=== PATIENT | male | born 1990 | race Caucasian/White ===

== ENCOUNTER 2018-05-27 05:51 | Observation (INO) | payer OTHER ==
[2018-05-27 06:44] LABS: Absolute Lymphocytes (CBC) 2.2 K/uL (0.7-4.9); Absolute Monocytes 0.7 K/uL (0.1-1.3); Absolute Neutrophil 4.6 K/uL (1.8-8.0); Basophils % 0.7 % (0-1.3); Eosinophils % 1.2 % (0-4.4); Hematocrit 42.2 % (39.6-49.0); Lymphocytes % 28.7 % (15.3-44.8); MCH 29.4 pg (27.0-35.0); MCV 83.3 fL (80-100); MPV 7.8 fL (7.6-11.3); Monocytes % 9.1 % (3.3-12.3); RBC Red Blood Cell Count 5.07 M/uL (4.33-5.43)
[2018-05-27 06:50] LABS: Protime INR 1.03
[2018-05-27 07:15] LABS: ALT/SGPT 80 U/L (12-78); AST/SGOT 66 U/L (15-37); Albumin 3.1 g/dL (3.4-5.0); Alkaline Phosphatase 78 U/L (45-117); BUN Blood Urea Nitrogen 12 mg/dL (7-18); Bicarbonate 24 mmol/L (21-32); Bilirubin Direct < 0.1 mg/dL (0-0.2); Bilirubin Total 0.2 mg/dL (0.2-1.0); Glucose Level 111 mg/dL (74-106); Magnesium 1.8 mg/dL (1.8-2.4); NT PRO-BNP 104 pg/mL (<125); Protein, Total 7.3 g/dL (6.4-8.2); Sodium Level 139 mmol/L (136-145); Troponin (Emerg Dept Use Only) < 0.02 ng/mL (0.0-0.045)
--- NOTE | 2018-05-27 07:54 | RAD REPORT ---
EXAM DESCRIPTION: CT - Chest For Pe Angio - 05/27/2018 7:37 am CLINICAL HISTORY: Chest pain, shortness of breath COMPARISON: Chest film May 27 TECHNIQUE: Dynamically enhanced 3 mm thick images of the chest were obtained during administration o f approximately 150mL Isovue 370 IV contrast. Coronal and oblique MIP reconstruction images were gene rated and reviewed. Exam utilizes a protocol to evaluate the pulmonary arterial tree. All CT scans are performed using dose optimization technique as appropriate and may include automated exposure control or mA/KV adjustment according to patient size. FINDINGS: No pulmonary emboli are identified. The aorta as imaged shows no acute or suspicious finding. No pericardial thickening or effusion. No focal mass or consolidation. Motion degradation could potentially mask minimal interstitial edema or infiltrate. No pleural effusion or pleural thickening. No mediastinal or hilar suspicious masses. No chest wall masses or abnormal axillary lymphadenopathy. IMPRESSION: No pulmonary emboli identified. No other significant or suspicious findings.
[2018-05-27 08:25] LABS: Barbiturates NEGATIVE (NEGATIVE); Benzodiazepines NEGATIVE (NEGATIVE); Cocaine NEGATIVE (NEGATIVE); METHAMPHETAM NEGATIVE (NEGATIVE); Methadone NEGATIVE (NEGATIVE); Opiates NEGATIVE (NEGATIVE); Phencyclidine NEGATIVE (NEGATIVE); THC Cannibis NEGATIVE (NEGATIVE)
[2018-05-27] MEDS ORDERED: LABETALOL HCL 100 MG/20 ML ONE (08:28)
[2018-05-27] MEDS ORDERED: LABETALOL 20 MG/4ML SYRINGE IV ONE ×3 (08:29→10:56)
[2018-05-27] MEDS ORDERED: LABETALOL HCL 100 MG TAB ONE (08:49)
--- NOTE | 2018-05-27 08:54 | ER ---
Nurse's Notes [facility] Name: Brady Mejia Age: 28 yrs Sex: Male : 1990 Arrival Date: 05/27/2018 Time: 05:56 Bed 14 Private MD: Diagnosis: Chest pain, unspecified;Hypertension Presentation: 05/27 06:12 Presenting complaint: Patient states: he started have chest pain at approx 0100 last bb night pain is now intermittent and now 2/10. Transition of care: patient was not received from another setting of care. Onset of symptoms was May 27, 2018. Risk Assessment: Do you want to hurt yourself or someone else? Patient reports no desire to harm self or others. Initial Sepsis Screen: Does the patient meet any 2 criteria? No. Patient's initial sepsis screen is negative. Does the patient have a suspected source of infection? No. Patient's initial sepsis screen is negative. Care prior to arrival: None. 06:12 Method Of Arrival: Ambulatory bb 06:12 Acuity: NARA 2 bb Triage Assessment: 06:20 General: Appears in no apparent distress. comfortable, Behavior is calm, cooperative, cc3 appropriate for age. Pain: Complains of pain in chest Pain currently is 2 out of 10 on a pain scale. Quality of pain is described as aching. EENT: No signs and/or symptoms were reported regarding the EENT system. Neuro: Level of Consciousness is awake, alert, obeys commands, Oriented to person, place, time, situation, Appropriate for age. Cardiovascular: Reports chest pain, since 0100H this morning Patient's skin is warm and dry. Respiratory: Airway is patent Respiratory effort is even, unlabored, Respiratory pattern is regular, symmetrical. GI: Abdomen is round non-distended. : No signs and/or symptoms were reported regarding the genitourinary system. Derm: No signs and/or symptoms reported regarding the dermatologic system. Musculoskeletal: Circulation, motion, and sensation intact. Range of motion: intact in all extremities. 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 - Social history:: Smoking status: Patient/guardian denies using tobacco, Patient/guardian denies using alcohol, street drugs. - Ebola Screening: : No symptoms or risks identified at this time. Screenin:20 Abuse screen: Denies threats or abuse. Denies injuries from another. Nutritional cc3 screening: No deficits noted. Tuberculosis screening: No symptoms or risk factors identified. Fall Risk Ambulatory Aid- None/Bed Rest/Nurse Assist (0 pts). Gait- Normal/Bed Rest/Wheelchair (0 pts) Mental Status- Oriented to own ability (0 pts). Assessment: 06:20 General: see triage assessment. cc3 06:45 Reassessment: Patient appears in no apparent distress at this time. Patient and/or cc3 family updated on plan of care and expected duration. Pain level reassessed. Patient is alert, oriented x 3, equal unlabored respirations, skin warm/dry/pink. 07:27 General: Appears in no apparent distress. Behavior is calm, cooperative. Pain: la1 Complains of pain in anterior aspect of right upper chest and right breast Pain does not radiate. Pain currently is 2 out of 10 on a pain scale. Pain began 4 hours ago. Neuro: Level of Consciousness is awake, alert, obeys commands, Oriented to person, place, time, situation. Cardiovascular: Capillary refill < 3 seconds Patient's skin is warm and dry. Respiratory: Airway is patent Respiratory effort is even, unlabored, Respiratory pattern is regular, symmetrical, Breath sounds are clear bilaterally. 10:10 Reassessment: Patient appears in no apparent distress at this time. Patient and/or aj family updated on plan of care and expected duration. Pain level reassessed. Patient is alert, oriented x 3, equal unlabored respirations, skin warm/dry/pink. General: Appears in no apparent distress. comfortable, Behavior is calm, cooperative, appropriate for age. Neuro: Level of Consciousness is awake, alert, obeys commands, Oriented to person, place, time, situation, Appropriate for age. Cardiovascular: Capillary refill < 3 seconds Patient's skin is warm and dry. Respiratory: Airway is patent Respiratory effort is even, unlabored, Respiratory pattern is regular, symmetrical. GI: Abdomen is flat. Derm: Skin is intact, is healthy with good turgor, Skin is pink, warm \T\ dry. normal. 11:40 Reassessment: Patient appears in no apparent distress at this time. No changes from aj previously documented assessment. Patient and/or family updated on plan of care and expected duration. Pain level reassessed. Patient is alert, oriented x 3, equal unlabored respirations, skin warm/dry/pink. Patient reported nausea, provider notified Patient states feeling better. Patient states symptoms have improved. 12:31 Reassessment: Patient appears in no apparent distress at this time. No changes from aj previously documented assessment. Patient and/or family updated on plan of care and expected duration. Pain level reassessed. Patient is alert, oriented x 3, equal unlabored respirations, skin warm/dry/pink. Reports headache. 13:26 Reassessment: Patient appears in no apparent distress at this time. No changes from aj previously documented assessment. Patient and/or family updated on plan of care and expected duration. Pain level reassessed. Patient is alert, oriented x 3, equal unlabored respirations, skin warm/dry/pink. PAtient reports headache, awaiting return phone call from Dr Galaviz. Vital Signs: 06:17 BP 177 / 124; Pulse 79; Resp 14 S; Temp 97.9(O); Pulse Ox 97% on R/A; Weight 98.43 kg bb (M); Height 5 ft. 11 in. (180.34 cm) (R); Pain 2/10; 06:30 BP 181 / 131; Pulse 80; Resp 16 S; Pulse Ox 96% on R/A; cc3 07:08 BP 180 / 130 RA; Pulse 71; Resp 16; Pulse Ox 97% on R/A; la1 08:02 BP 206 / 142; Pulse 75; Resp 16; Pulse Ox 98% on R/A; la1 08:29 BP 191 / 130; Pulse 76; Resp 16; Pulse Ox 97% on R/A; la1 08:49 BP 209 / 131; la1 09:06 BP 199 / 133; Pulse 72; Resp 16; Pulse Ox 98% on R/A; la1 09:19 BP 180 / 130; Pulse 75; Resp 16; Pulse Ox 98% on R/A; la1 09:48 BP 163 / 126; Pulse 72; Resp 16; Pulse Ox 97% on R/A; la1 10:10 BP 170 / 124; Pulse 73; Resp 18; Pulse Ox 97% on R/A; aj 10:23 BP 163 / 124; Pulse 73; aj 11:17 BP 145 / 113; Pulse 80; Resp 17; Pulse Ox 99% on R/A; aj 11:41 BP 132 / 93; Pulse 71; Resp 16; Pulse Ox 98% on R/A; aj 12:30 BP 142 / 105; Pulse 73; Resp 20; Pulse Ox 97% on R/A; aj 06:17 Body Mass Index 30.27 (98.43 kg, 180.34 cm) bb ED Course: 05:56 Patient arrived in ED. ag3 06:00 [facility] kb 06:00 Constantino Scruggs MD is Attending Physician. kb 06:14 Triage completed. bb 06:17 Arm band placed on Patient placed in an exam room, on a stretcher, on cardiac tech, bb on pulse oximetry. EKG completed in triage. Results shown to MD. 06:20 Patient has correct armband on for positive identification. Placed in gown. Bed in low cc3 position. Call light in reach. Side rails up X2. cardiac monitor technician on. Pulse ox on. NIBP on. 06:30 Inserted saline lock: 20 gauge in right antecubital area, using aseptic technique. cc3 Blood collected. 06:35 X-ray completed. Portable x-ray completed in exam room. Patient tolerated procedure jb2 well. 06:38 XRAY Chest (1 view) In Process Unspecified. EDMS 07:00 Report given to SANCHO Jason. cc3 07:03 Eren Roque RN is Primary Nurse. la1 07:[address] via wheelchair. cw1 07:28 No provider procedures requiring assistance completed. Patient maintains SpO2 la1 saturation greater than 95% on room air. 07:37 CT Chest For PE Angio In Process Unspecified. EDMS 08:03 Notified ED physician of Notified Nurse Practitioner and/or Physician Cyber Forensics Analyst of la1 vital signs. 08:53 Sylvie Galaviz MD is Hospitalizing Provider. kb 09:15 Troponin (emerg Dept Use Only) Sent. mh5 09:16 Repeat lab(s) drawn. by me, sent to lab. EKG done, by ED staff, reviewed by Nydia CHUN. 12:30 Notified the admitting physician of CT and Ultrasound were back and negative and asked aj to please return phone call to me in ER. 13:15 Chief Of Service notified Unable to contact Dr Galaviz and updated on patient's status aj and length of stay in ER. 13:25 Mendy Ramírez called me in ER and reported that Dr Galaviz had been waiting for CT and aj Ultrasound results. Chief Of Service notified that message was left on Dr Galaviz's voice mail about CT and Ultrasound results being negative at 1230. Stated that she would speak with Dr Galaviz. 13:27 Awaiting: Hospitalist to make decision about admission vs discharge. aj 14:01 Report given to Jenn KINGSLEY. wilma 14:23 Patient admitted, IV remains in place. intact. aj Administered Medications: 08:29 Drug: Trandate 10 mg Route: IVP; Site: left antecubital; la1 09:15 Follow up: Response: No adverse reaction; Blood pressure is lowered la1 08:49 Drug: Trandate 100 mg Route: PO; la1 09:15 Follow up: Response: No adverse reaction la1 09:04 Drug: Trandate 20 mg Route: IVP; Site: left antecubital; la1 09:15 Follow up: Response: No adverse reaction la1 10:58 Drug: Trandate 20 mg Route: IVP; Site: left antecubital; aj 11:24 Follow up: Response: Blood pressure is lowered aj 10:58 Drug: Norvasc 5 mg Route: PO; aj 11:25 Follow up: Response: Blood pressure is lowered aj 11:38 Drug: Zofran 4 mg Route: IVP; Site: left antecubital; aj 14:23 Follow up: Response: No adverse reaction; Nausea is decreased aj Outcome: 08:54 Decision to Hospitalize by Provider. kb 14:23 Admitted to Med/surg accompanied by tech, via wheelchair, with chart, Report called to wilma Barajas 14:23 Condition: good 14:23 Instructed on the need for admit. 14:24 Patient left the ED. aj Signatures: Dispatcher [employer] EDNydia Link, BIOMETRICS CONSULTANT-C BIOMETRICS CONSULTANT-Ckb Anna Flores, RN RN J Carlos Pereyra2 Mira Haddad RN RN Kelly Ferro 1 Eren Roque RN RN Leni Barrera [facility] Patsy Lora 3 Emeli Martinez 3
--- NOTE | 2018-05-27 08:55 | EDPHYS ---
Physician Documentation [facility] Name: Brady Mejia Age: 28 yrs Sex: Male : 1990 Arrival Date: 05/27/2018 Time: 05:56 Bed 14 Private MD: ED Physician Constantino Scruggs HPI: 05/27 07:12 This 28 yrs old Male presents to ER via Ambulatory with complaints of Chest kb Pain. 07:12 The patient or guardian reports chest pain that is located primarily in the chest kb diffusely. The pain radiates to abdomen. Associated signs and symptoms: The patient has no apparent associated signs or symptoms. The chest pain is described as intermittent. Duration: The patient or guardian reports multiple episodes, that are intermittent, with no pattern. Modifying factors: The symptoms are alleviated by nothing. the symptoms are aggravated by nothing. Severity of pain: At its worst the pain was moderate in the emergency department the pain has improved markedly. The patient has not experienced similar symptoms in the past. The patient has not recently seen a physician. 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 - Social history:: Smoking status: Patient/guardian denies using tobacco, Patient/guardian denies using alcohol, street drugs. - Ebola Screening: : No symptoms or risks identified at this time. ROS: 07:12 Constitutional: Negative for fever, chills, and weight loss, ENT: Negative for injury, kb pain, and discharge, Neck: Negative for injury, pain, and swelling, Respiratory: Negative for shortness of breath, cough, wheezing, and pleuritic chest pain, Abdomen/GI: Negative for abdominal pain, nausea, vomiting, diarrhea, and constipation, Back: Negative for injury and pain, : Negative for injury, bleeding, discharge, and swelling, MS/Extremity: Negative for injury and deformity, Skin: Negative for injury, rash, and discoloration, Neuro: Negative for headache, weakness, numbness, tingling, and seizure. 07:12 Cardiovascular: Positive for chest pain, Negative for edema, orthopnea, palpitations, paroxysmal nocturnal dyspnea. Exam: 07:12 Constitutional: This is a well developed, well nourished patient who is awake, alert, kb and in no acute distress. Head/Face: Normocephalic, atraumatic. Eyes: Pupils equal round and reactive to light, extra-ocular motions intact. Lids and lashes normal. Conjunctiva and sclera are non-icteric and not injected. Cornea within normal limits. Periorbital areas with no swelling, redness, or edema. ENT: Nares patent. No nasal discharge, no septal abnormalities noted. Tympanic membranes are normal and external auditory canals are clear. Oropharynx with no redness, swelling, or masses, exudates, or evidence of obstruction, uvula midline. Mucous membranes moist. Neck: Trachea midline, no thyromegaly or masses palpated, and no cervical lymphadenopathy. Supple, full range of motion without nuchal rigidity, or vertebral point tenderness. No Meningismus. Chest/axilla: Normal chest wall appearance and motion. Nontender with no deformity. No lesions are appreciated. Cardiovascular: Regular rate and rhythm with a normal S1 and S2. No gallops, murmurs, or rubs. Normal PMI, no JVD. No pulse deficits. Respiratory: Lungs have equal breath sounds bilaterally, clear to auscultation and percussion. No rales, rhonchi or wheezes noted. No increased work of breathing, no retractions or nasal flaring. Abdomen/GI: Soft, non-tender, with normal bowel sounds. No distension or tympany. No guarding or rebound. No evidence of tenderness throughout. Back: No spinal tenderness. No costovertebral tenderness. Full range of motion. Skin: Warm, dry with normal turgor. Normal color with no rashes, no lesions, and no evidence of cellulitis. MS/ Extremity: Pulses equal, no cyanosis. Neurovascular intact. Full, normal range of motion. Neuro: Awake and alert, GCS 15, oriented to person, place, time, and situation. Cranial nerves II-XII grossly intact. Motor strength 5/5 in all extremities. Sensory grossly intact. Cerebellar exam normal. Normal gait. Vital Signs: 06:17 BP 177 / 124; Pulse 79; Resp 14 S; Temp 97.9(O); Pulse Ox 97% on R/A; Weight 98.43 kg bb (M); Height 5 ft. 11 in. (180.34 cm) (R); Pain 2/10; 06:30 BP 181 / 131; Pulse 80; Resp 16 S; Pulse Ox 96% on R/A; cc3 07:08 BP 180 / 130 RA; Pulse 71; Resp 16; Pulse Ox 97% on R/A; la1 08:02 BP 206 / 142; Pulse 75; Resp 16; Pulse Ox 98% on R/A; la1 08:29 BP 191 / 130; Pulse 76; Resp 16; Pulse Ox 97% on R/A; la1 08:49 BP 209 / 131; la1 09:06 BP 199 / 133; Pulse 72; Resp 16; Pulse Ox 98% on R/A; la1 09:19 BP 180 / 130; Pulse 75; Resp 16; Pulse Ox 98% on R/A; la1 09:48 BP 163 / 126; Pulse 72; Resp 16; Pulse Ox 97% on R/A; la1 10:10 BP 170 / 124; Pulse 73; Resp 18; Pulse Ox 97% on R/A; aj 10:23 BP 163 / 124; Pulse 73; aj 11:17 BP 145 / 113; Pulse 80; Resp 17; Pulse Ox 99% on R/A; aj 11:41 BP 132 / 93; Pulse 71; Resp 16; Pulse Ox 98% on R/A; aj 12:30 BP 142 / 105; Pulse 73; Resp 20; Pulse Ox 97% on R/A; aj 06:17 Body Mass Index 30.27 (98.43 kg, 180.34 cm) bb MDM: 06:00 Patient medically screened. kb 07:12 Data reviewed: vital signs, nurses notes. Data interpreted: Pulse oximetry: on room air kb is 97 %. Interpretation: normal. 08:17 Counseling: I had a detailed discussion with the patient and/or guardian regarding: the kb historical points, exam findings, and any diagnostic results supporting the discharge/admit diagnosis, lab results, radiology results, the need for further work-up and treatment in the hospital. 08:40 Physician consultation: Sylvie Galaviz MD was contacted at 08:40, regarding admission, ryan to the telemetry unit. patient's condition, and will see patient in ED, shortly. 10:42 ED course: Dr Glaaviz came to see the patient, states "He can go home. I spoke to Dr ryan Middleton about him and he can follow up in his office.". 05/27 06:18 Order name: LFT's; Complete Time: 07:17 kb 05/27 06:18 Order name: Basic Metabolic Panel; Complete Time: 07:17 kb 05/27 06:18 Order name: CBC with Diff; Complete Time: 06:49 kb 05/27 06:18 Order name: Magnesium; Complete Time: 07:17 kb 05/27 06:18 Order name: NT PRO-BNP; Complete Time: 07:17 kb 05/27 06:18 Order name: PT-INR; Complete Time: 06:59 kb 05/27 06:18 Order name: Troponin (emerg Dept Use Only); Complete Time: 07:17 kb 05/27 06:18 Order name: XRAY Chest (1 view); Complete Time: 09:43 kb 05/27 06:18 Order name: D-Dimer; Complete Time: 06:59 kb 05/27 06:40 Order name: UDS; Complete Time: 08:31 kb 05/27 08:17 Order name: Urine Dipstick--Ancillary (enter results); Complete Time: 09:09 iw 05/27 08:39 Order name: Troponin (emerg Dept Use Only); Complete Time: 09:35 kb 05/27 11:42 Order name: Troponin (emerg Dept Use Only) aj 05/27 12:35 Order name: Troponin (Emerg Dept Use Only); Complete Time: 12:35 EDMS 05/27 06:18 Order name: EKG; Complete Time: 06:19 kb 05/27 06:18 Order name: Cardiac monitoring; Complete Time: 06:25 kb 05/27 06:18 Order name: EKG - Nurse/Tech; Complete Time: 06:25 kb 05/27 06:18 Order name: IV Saline Lock; Complete Time: 06:33 kb 05/27 06:18 Order name: Labs collected and sent; Complete Time: 06:33 kb 05/27 06:18 Order name: O2 Per Protocol; Complete Time: 06:26 kb 05/27 06:54 Order name: CT Chest For PE Angio; Complete Time: 07:55 kb 05/27 08:39 Order name: EKG; Complete Time: 08:39 kb 05/27 12:13 Order name: CT; Complete Time: 12:13 EDMS 05/27 13:42 Order name: US; Complete Time: 13:55 EDMS 05/27 06:18 Order name: O2 Sat Monitoring; Complete Time: 06:26 kb 05/27 06:27 Order name: Recheck Vital Signs; Complete Time: 06:36 kb 05/27 06:40 Order name: Bilateral blood pressure; Complete Time: 07:13 kb 05/27 08:39 Order name: EKG - Nurse/Tech; Complete Time: 08:49 kb Administered Medications: 08:29 Drug: Trandate 10 mg Route: IVP; Site: left antecubital; la1 09:15 Follow up: Response: No adverse reaction; Blood pressure is lowered la1 08:49 Drug: Trandate 100 mg Route: PO; la1 09:15 Follow up: Response: No adverse reaction la1 09:04 Drug: Trandate 20 mg Route: IVP; Site: left antecubital; la1 09:15 Follow up: Response: No adverse reaction la1 10:58 Drug: Trandate 20 mg Route: IVP; Site: left antecubital; aj 11:24 Follow up: Response: Blood pressure is lowered aj 10:58 Drug: Norvasc 5 mg Route: PO; aj 11:25 Follow up: Response: Blood pressure is lowered aj 11:38 Drug: Zofran 4 mg Route: IVP; Site: left antecubital; aj 14:23 Follow up: Response: No adverse reaction; Nausea is decreased aj Disposition: 14:47 Co-signature as Attending Physician, Constantino Scruggs MD I agree with the assessment and wa plan of care. Disposition: 05/27/18 08:54 Hospitalization ordered by Sylvie Galaviz for Observation. Preliminary diagnosis are Chest pain, unspecified, Hypertension. - Bed requested for Telemetry/MedSurg (observation). - Status is Observation. aj - Condition is Stable. - Problem is new. - Symptoms are unchanged. UTI on Admission? No Signatures: Dispatcher [employer] EDNydia Link FNP-C FNP-Ckb Mendy Ramírez RN RN dw Myers, Amanda, RN RN aj Anderson, Corey, MD MD cha Ballard, Brenda, RN RN bb Attema, Lee, RN RN laConstantino Bridges MD MD wa Corrections: (The following items were deleted from the chart) 11:37 07:12 Constitutional: This is a well developed, well nourished patient who is awake, kb alert, and in no acute distress. Head/Face: Normocephalic, atraumatic. Eyes: Pupils equal round and reactive to light, extra-ocular motions intact. Lids and lashes normal. Conjunctiva and sclera are non-icteric and not injected. Cornea within normal limits. Periorbital areas with no swelling, redness, or edema. ENT: Nares patent. No nasal discharge, no septal abnormalities noted. Tympanic membranes are normal and external auditory canals are clear. Oropharynx with no redness, swelling, or masses, exudates, or evidence of obstruction, uvula midline. Mucous membranes moist. Neck: Trachea midline, no thyromegaly or masses palpated, and no cervical lymphadenopathy. Supple, full range of motion without nuchal rigidity, or vertebral point tenderness. No Meningismus. Chest/axilla: Normal chest wall appearance and motion. Nontender with no deformity. No lesions are appreciated. Cardiovascular: Regular rate and rhythm with a normal S1 and S2. No gallops, murmurs, or rubs. Normal PMI, no JVD. No pulse deficits. Respiratory: Lungs have equal breath sounds bilaterally, clear to auscultation and percussion. No rales, rhonchi or wheezes noted. No increased work of breathing, no retractions or nasal flaring. Abdomen/GI: Soft, non-tender, with normal bowel sounds. No distension or tympany. No guarding or rebound. No evidence of tenderness throughout. Back: No spinal tenderness. No costovertebral tenderness. Full range of motion. Skin: Warm, dry with normal turgor. Normal color with no rashes, no lesions, and no evidence of cellulitis. MS/ Extremity: Pulses equal, no cyanosis. Neurovascular intact. Full, normal range of motion. Neuro: Awake and alert, GCS 15, oriented to person, place, time, and situation. Cranial nerves II-XII grossly intact. Motor strength 5/5 in all extremities. Sensory grossly intact. Cerebellar exam normal. Normal gait. kb 13:47 08:54 Hospitalization Ordered by Sylvie Galaviz MD for Observation. Preliminary dw diagnosis is Chest pain, unspecified; Hypertension. Bed requested for Telemetry/MedSurg (observation). Status is Observation. Condition is Stable. Problem is new. Symptoms are unchanged. UTI on Admission? No. kb 14:24 13:47 05/27/2018 08:54 Hospitalization Ordered by Sylvie Galaviz MD for Observation. aj Preliminary diagnosis is Chest pain, unspecified; Hypertension. Bed requested for Telemetry/MedSurg (observation). Status is Observation. Condition is Stable. Problem is new. Symptoms are unchanged. UTI on Admission? No. dw
[2018-05-27 09:07] LABS: Urine Blood NEGATIVE (NEG); Urine Glucose NEGATIVE (NEG); Urine Protein 2+ (NEG); Urine Specific Gravity 1.015 (1.005-1.030)
--- NOTE | 2018-05-27 09:36 | RAD REPORT ---
EXAM DESCRIPTION: RAD - Chest Single View - 05/27/2018 6:38 am CLINICAL HISTORY: CHEST PAIN COMPARISON: None. TECHNIQUE: AP portable chest image was obtained 0630 hours . FINDINGS: Lungs are clear. Heart and vasculature are normal. No measurable pleural effusion and no p neumothorax. No acute bony abnormality seen. No acute aortic findings suspected. IMPRESSION: No acute cardiopulmonary process.
[2018-05-27] MEDS ORDERED: AMLODIPINE 5 MG TAB ONE (10:56)
--- NOTE | 2018-05-27 12:12 | RAD REPORT ---
EXAM DESCRIPTION: CT - Abdomen Pelvis Wo Contrast - 05/27/2018 11:57 am CLINICAL HISTORY: Abdominal pain COMPARISON: CT imaging August 2016 TECHNIQUE: Axial [address] imaging of the abdomen and pelvis was performed without IV contrast. No IV contrast was given because of allergy, abnormal renal function, patient refusal or physician re quest. No oral contrast administered. All CT scans are performed using dose optimization technique as appropriate and may include automated exposure control or mA/KV adjustment according to patient size. FINDINGS: No suspicious findings in the lung bases. The liver, spleen and pancreas show no suspicious findings on non-contrast imaging. Gallbladder is ti ghtly contracted precluding assessment. No biliary tree dilatation. No hydronephrosis is present. Contrast is present in the collecting system from earlier CT chest stud y. There is contrast in a contracted urinary bladder as well. No prostate or seminal vesicle abnormal ity seen. No significant adrenal finding. Patient has multiple bilateral angiomyolipomas with no pierce dence for active or acute hemorrhage. Soft tissue component on the largest left lesion has diminished . Maximum diameter is 5 cm currently compared to 6.5 cm previously. The largest lesion on the right h as also decreased in size approximately 6 cm currently compared to the or 9 cm August 2016. No dilated bowel loops or bowel wall thickening. No free air, free fluid or inflammatory stranding. N o hernia, mass or bulky lymphadenopathy. No appendicitis findings. No abnormal mesenteric adenopathy. No suspicious bony findings. IMPRESSION: Non-contrast enhanced CT abdomen and pelvis imaging shows no acute finding. Patient has known bilateral angiomyolipomas with no evidence for acute hemorrhage. The 2 largest lesi ons have shown a decrease in size. Smaller lesions also appear to have decreased in size since 2016. Gallbladder is tightly contracted precluding assessment. Acute process is doubtful. Full assessment is limited is the absence of IV contrast.
--- NOTE | 2018-05-27 13:42 | RAD REPORT ---
EXAM DESCRIPTION: US - Renal Ultrasound-Complete - 05/27/2018 12:40 pm CLINICAL HISTORY: Abnormal renal function, history of renal artery embolization COMPARISON: CT imaging May 27 FINDINGS: The right kidney measures 13.8 x 7.2 x 5.7 cm. The left kidney measures 12.1 x 6.6 x 5.8 cm. Renal cortical thickness is normal. Echogenicity is increased indicating a component of medical r enal disease. No hydronephrosis. Patient has multiple variably sized predominantly hyperechoic masses . This matches the angiomyolipoma findings on prior CT studies. Urinary bladder is contracted. No gross abnormality. Renal vascular assessment is very limited. No renal artery stenosis can't be assessed on this study. IMPRESSION: Multiple angiomyolipomas matching the CT finding. No sonographic evidence of acute hemor rhage. Patient has underlying medical renal disease is evident. No hydronephrosis. Limited vascular assessment. Renal artery stenosis cannot be assessed.
[2018-05-27] MEDS ORDERED: ONDANSETRON 4 MG/2 ML VIAL IV PRN (14:32)
[2018-05-27] MEDS ORDERED: NA CHLORIDE 0.9% 1,000 ML IV SCH (14:32)
[2018-05-27] MEDS ORDERED: D50W 25 GM/50 ML SYRINGE IV PRN (14:36)
[2018-05-27] MEDS ORDERED: GLUCAGON 1 MG/VIAL IM PRN (14:36)
[2018-05-27] MEDS ORDERED: ACETAMINOPHEN 325 MG TABLET PO ONE ×2 (14:38→21:48)
[2018-05-27] MEDS ORDERED: HYDRALAZINE HCL 10 MG TABLET PO ONE (15:16)
[2018-05-27] MEDS: INSULIN -REGULAR HUMAN 50 UNIT/0.5 ML ML SQ SCH ×2 (16:30→21:00)
--- NOTE | 2018-05-27 16:53 | P.HP ---
Certification for Inpatient Patient admitted to: Observation With expected LOS: <2 Midnights Patient will require the following post-hospital care: None Practitioner: I am a practitioner with admitting privileges, knowledge of patient current condition, hospital course, and medical plan of care. Services: Services provided to patient in accordance with Admission requirements found in Title 42 Section 412.3 of the Code of Federal Regulations Patient History Date of Service: 05/27/18 Primary Care Provider: Dr. Galaviz Reason for admission: Chest pain History of Present Illness: 28-year-old male with significant past medical history of seizures and tuberous sclerosis who presented to the ED complaining of having some chest pain. Patient stated that his pain started this morning around 1:30 a.m. and was radiating down to his abdomen and back and thus decided to come to the ER. Patient stated that he woke up his mom as the pain was getting excruciating and he was not able to tolerate it. Patient also had high blood pressure when he presented to the ER. Patient has similar episodes in the past in September where he was noted to have rupture of his left renal artery and was life flighted to [place] and [facility] for embolization. At that time he had renal embolization to the left and the right renal arteries. After which she has been doing well with no acute abnormalities. Patient denies having any fever chills nausea vomiting or any other associated symptoms at this time In the ER patient had troponin x2 that were negative negative EKG changes. Patient did however have elevated LFTs along with blood pressure and thus was admitted for further workup of secondary hypertension given the history of chronic kidney disease. Allergies No Known Allergies Allergy (Verified 05/27/18 14:58) Home Medications: Dexamethasone [Decadron] 10 ml PO Q6H 05/27/18 Divalproex Sodium [Divalproex Sodium ER] 1,500 mg PO BEDTIME 05/27/18 Everolimus [Afinitor] 10 mg PO DAILY 05/27/18 levETIRAcetam [Levetiracetam] 1,000 mg PO DAILY 05/27/18 levETIRAcetam [Levetiracetam] 1,500 mg PO BEDTIME 05/27/18 - Past Medical/Surgical History Has patient received pneumonia vaccine in the past: No Diabetic: No -: hypertension -: Tuberous sclerosis -: seizures -: kidney tumors - Family History grandmother -: Hypertension, Diabetes - Social History Smoking Status: Never smoker Alcohol use: No CD- Drugs: No Caffeine use: Yes Place of Residence: Home Review of Systems 10-point ROS is otherwise unremarkable Physical Examination - Vital Signs Temperature: 97.6 F Blood Pressure: 152/100 Pulse: 66 Respirations: 16 Pulse Ox (%): 98 - Physical Exam General: Alert, In no apparent distress HEENT: Atraumatic, PERRLA, Mucous membr. moist/pink, EOMI, Sclerae nonicteric Neck: Supple, 2+ carotid pulse no bruit, No LAD, Without JVD or thyroid abnormality Respiratory: Clear to auscultation bilaterally, Normal air movement Cardiovascular: Regular rate/rhythm, Normal S1 S2 Gastrointestinal: Normal bowel sounds, No tenderness Musculoskeletal: No tenderness Integumentary: No rashes Neurological: Normal gait, Normal speech, Normal strength at 5/5 x4 extr, Normal tone, Normal affect Lymphatics: No axilla or inguinal lymphadenopathy - Studies Laboratory Data (last 24 hrs) 05/27/18 06:25: PT 12.2, INR 1.03 05/27/18 06:25: WBC 7.7, Hgb 14.9, Hct 42.2, Plt Count 281 05/27/18 06:25: Sodium 139, Potassium 4.0, BUN 12, Creatinine 0.80, Glucose 111 H, Magnesium 1.8, Total Bilirubin 0.2, AST 66 H, ALT 80 H, Alkaline Phosphatase 78 Assessment and Plan - Problems (Diagnosis) (1) Hypertensive urgency Current Visit: Yes Status: Acute Plan: Elevated blood pressure post starting a new medication for his kidney disease. -will hold the chemotherapy agent at this time along with steroids. -Hydralazine p.r.n. at this time. -will order renal artery stenosis and secondary hypertension workup at this time -will get nephrology consultation at this time as well (2) Tuberous sclerosis Current Visit: Yes Status: Chronic Plan: History of tuberous sclerosis has been taking care at [facility]. Patient has a bruise trimmer and a heme oncologist at [facility] who follows the patient is closely over there. Recent history of embolization of the renal artery in September of 2017 (3) Seizures Current Visit: Yes Status: Chronic Plan: Currently stable will continue to monitor and restart home medication Discharge Plan: Home Plan to discharge in: 48 Hours - Advance Directives Does patient have a Living Will: No Does patient have a Durable POA for Healthcare: No - Code Status/Comfort Care Code Status Assessed: Yes Critical Care: No
[2018-05-27] MEDS ORDERED: INFLUENZA VACCINE (for 3y+) 0.5 ML DOSE IMVAC ONE (17:00)
[2018-05-27] MEDS ORDERED: MAGNESIUM SULFATE 1 gm IVPB 1 GM/100 ML BAG IV ONE (17:00)
[2018-05-27] MEDS: TOPIRAMATE 25 MG TAB PO SCH (20:56)
[2018-05-27] MEDS: DIVALPROEX ER 250 MG TAB PO SCH (20:56)
[2018-05-27] MEDS ORDERED: levETIRAcetam 500 MG TAB PO SCH (21:00)
[2018-05-27] MEDS: levETIRAcetam 500 MG TAB PO SCH (21:13)
[2018-05-28 00:59] VITALS: O2SAT 96
[2018-05-28] MEDS ORDERED: METOPROLOL TARTRATE 5 MG/5 ML INJ IV STA (04:21)
[2018-05-28 06:11] LABS: Absolute Lymphocytes (CBC) 2.3 K/uL (0.7-4.9); Absolute Monocytes 0.6 K/uL (0.1-1.3); Absolute Neutrophil 2.7 K/uL (1.8-8.0); Basophils % 0.6 % (0-1.3); Eosinophils % 2.6 % (0-4.4); Hematocrit 42.1 % (39.6-49.0); Lymphocytes % 39.3 % (15.3-44.8); MCH 29.6 pg (27.0-35.0); MPV 7.9 fL (7.6-11.3); Monocytes % 9.6 % (3.3-12.3); RBC Red Blood Cell Count 5.01 M/uL (4.33-5.43)
[2018-05-28 06:12] LABS: ALT/SGPT 92 U/L (12-78); AST/SGOT 58 U/L (15-37); Albumin 3.1 g/dL (3.4-5.0); Alkaline Phosphatase 85 U/L (45-117); BUN Blood Urea Nitrogen 10 mg/dL (7-18); Bicarbonate 26 mmol/L (21-32); Bilirubin Total 0.3 mg/dL (0.2-1.0); Glucose Level 95 mg/dL (74-106); Phosphorus 4.2 mg/dL (2.5-4.9); Potassium 3.8 mmol/L (3.5-5.1); Protein, Total 7.4 g/dL (6.4-8.2); Sodium Level 140 mmol/L (136-145)
[2018-05-28] MEDS: METOPROLOL TAR 25 MG TAB PO SCH ×2 (06:29→17:07)
--- NOTE | 2018-05-28 06:51 | P.PN ---
Date of Service: 05/28/18 Patient's blood pressure remained elevated. Patient with angiomyolipoma. Will go ahead and check renin, aldosterone, and cortisol levels. Will go ahead and start scheduled blood pressure medication as well. Further diagnostic studies and consultations pending at this time. Workup for secondary causes of hypertension.
[2018-05-28] MEDS: SPIRONOLACTONE 25 MG TABLET PO SCH (07:15)
[2018-05-28] MEDS: INSULIN -REGULAR HUMAN 50 UNIT/0.5 ML ML SQ SCH ×4 (07:30→21:00)
[2018-05-28] MEDS ORDERED: EVEROLIMUS 10 MG PO SCH (09:00)
[2018-05-28] MEDS ORDERED: levETIRAcetam 500 MG TAB PO SCH (09:00)
[2018-05-28] MEDS ORDERED: POTASSIUM 25 MEQ EFFERV TAB PO ONE (09:00)
[2018-05-28] MEDS: levETIRAcetam 500 MG TAB PO SCH ×2 (10:00→21:13)
[2018-05-28] MEDS: LOSARTAN POTASSIUM 50 MG TABLET PO SCH (10:00)
--- NOTE | 2018-05-28 10:16 | RAD REPORT ---
EXAM DESCRIPTION: US - Abdomen Pelvis Scan US - 05/28/2018 9:54 am CLINICAL HISTORY: High blood pressure Renal Artery Duplex Sonogram. Focus on renal arter COMPARISON: Abdomen Pelvis Wo Contrast dated 05/27/2018; Renal Ultrasound-Complete dated 8 FINDINGS: Multiple echogenic renal lesions are again noted bilaterally compatible with angiomyolipom as. Please refer to preceding day renal sonography for further details. Aortic velocity: 83 cm/second Right proximal renal artery: 78 cm/second Right mid renal artery: 55 cm/second Right distal renal artery: 41 cm/second Right renal arcuate artery resistive index: 0.4 Right renal artery / aorta ratio: 0.9 Left proximal renal artery: 71 cm/second Left mid renal artery: 124 cm/second Left distal renal artery: 127 cm/second Left renal arcuate artery resistive index: 0.5 Left renal artery/aorta ratio: 1.5 Normal waveforms demonstrated within the bilateral renal arteries. IMPRESSION: No evidence of hemodynamically significant stenosis within the bilateral renal arteries. Multiple bilateral renal angiomyolipomas.
--- NOTE | 2018-05-28 10:51 | P.PN ---
Subjective Date of Service: 05/28/18 Primary Care Provider: Dr. Galaviz Chief Complaint: Chest pain Pt seen and examined at bedside. Chart Reviewed. Awaiting Reccs from nephrology. C/o BURT and still having elevated BP> Review of Systems 10-point ROS is otherwise unremarkable Physical Examination - Vital Signs Temperature: 97.9 F Blood Pressure: 172/112 Pulse: 80 Respirations: 16 Pulse Ox (%): 96 - Physical Exam General: Alert, In no apparent distress HEENT: Atraumatic, PERRLA, EOMI Neck: Supple, JVD not distended Respiratory: Clear to auscultation bilaterally, Normal air movement Cardiovascular: Regular rate/rhythm, Normal S1 S2 Gastrointestinal: Normal bowel sounds, No tenderness Musculoskeletal: No tenderness Integumentary: No rashes Neurological: Normal speech, Normal tone, Normal affect Lymphatics: No axilla or inguinal lymphadenopathy - Studies Medications List Reviewed: Yes Assessment And Plan - Current Problems (Diagnosis) (1) Hypertensive urgency Current Visit: Yes Status: Acute Plan: Elevated blood pressure post starting a new medication for his TSS. -will hold the chemotherapy agent at this time along with steroids. -Losartan, Metoprolol and Spironolactone Started -Hydralazine p.r.n. at this time. -All Imaging negative for Renal Artery Stenosis -Lab pending for secondary HTN -Nephrology consulted. Awaiting reccs (2) Tuberous sclerosis Current Visit: Yes Status: Chronic Plan: History of tuberous sclerosis has been taking care at [facility]. Patient has a promotions specialist and a heme oncologist at [facility] who follows the patient is closely over there. Recent history of embolization of the renal artery in September of 2017 (3) Seizures Current Visit: Yes Status: Chronic Plan: Currently stable will continue to monitor and restart home medication Discharge Plan: Home Plan to discharge in: 48 Hours - Code Status/Comfort Care Code Status Assessed: Yes Critical Care: No
[2018-05-28] MEDS ORDERED: TOPIRAMATE 25 MG TAB PO ONE (11:21)
[2018-05-28] MEDS: TOPIRAMATE 25 MG TAB PO SCH (21:14)
[2018-05-28] MEDS: DIVALPROEX ER 250 MG TAB PO SCH (21:14)
[2018-05-28] MEDS ORDERED: ACETAMINOPHEN 325 MG TABLET PO ONE (21:56)
--- NOTE | 2018-05-28 22:34 | CON ---
Date of Consultation: 05/28/2018 NEPHROLOGY CONSULTATION Reason For Consult: Uncontrolled hypertension. History Of Present Illness: Mr. Mejia is a 28-year-old male with a past medical history significan t for history of tuberous sclerosis, seizure disorder, and history of multiple angiomyolipomas in chandra ateral kidneys, who underwent embolization of one of his angiomyolipoma back in September, presented [facility] complaining of some severe chest pain. The patient felt like a 400-pound dumbb ell was crushing into his chest and he started crying. He went and woke up his mother and was alex t in for further evaluation. He was found to have severe high blood pressure in the 200s range and h as been admitted for further evaluation. The patient has had renal ultrasound, which showed no evide nce of any renal artery stenosis. Home medications include valproate, everolimus, levetiracetam 1000 mg in the morning and 1500 mg at bedtime. Past Medical History: Significant for history of angiomyolipoma, seizures, tuberous sclerosis, and h ypertension. The patient was admitted in September at [facility] and underwent embolization of his angiomyo lipoma, and at that time, his blood pressure was very high, but he was discharged without any medicat ions at that time and was told that he would be okay. Family History: Significant for hypertension in his grandmother and diabetes. Social History: History of smoking in the past, quit in September 2017. History of marijuana use, al so in the past and quit in 2017. Review of Systems: Positive for some headache which he describes as a dull headache. Denies any chest pain, shortness o f breath, hematuria, abdominal pain, nausea, vomiting. All other review of systems are negative. Physical Examination: Vital Signs: At this time are showing temperature of 99.3, pulse rate of 69, respiratory rate of 16, and blood pressure 120/96. General: He appears in no acute distress. Lungs: Clear to auscultation. Heart: Auscultation of the heart revealed regular rate and rhythm. No murmurs were appreciated. Abdomen: Soft and nontender. Auscultation of the abdomen did not reveal any evidence of bruit in hi s renal arteries. Extremities: Did not reveal any evidence of edema. Laboratory Data: Stable hemoglobin, hematocrit, and platelet count, and BMP results are showing norm al kidney function, slightly elevated AST and ALT. Albumin of 3.1. Renin and aldosterone levels are still pending. Random cortisol levels are normal. Urinalysis showed 2+ proteinuria, and toxicology screen was negative. Current Medications: Included spironolactone 25 mg a day, metoprolol 50 mg b.i.d., potassium times o ne-time dose was given yesterday, Topamax 25 mg at bedtime, Keppra 1000 mg in the morning and 1500 mg at bedtime, and Depakote. Impression: 1.Uncontrolled hypertension with hypertensive emergency, currently with improving blood pressure eliazar murillo. Renin and aldosterone levels are still pending at this time, but agree with starting spironol actone and continue losartan; however, I do not think he would need metoprolol at this time since his blood pressures are improving. 2.History of angiomyolipomas noted on the ultrasound. The patient will need outpatient followup wit h Urology for that. 3.History of seizure disorders. Continue current medications. 4.Elevated liver function tests, etiology unclear. The patient may need his Depakote levels checked and may need levels adjusted, but for now, we will continue to monitor. Plan: Overall, the patient's renal function is stable at this time. I will go ahead and order Depak ote levels for morning. Discontinue metoprolol and monitor him closely. The plan was discussed with the patient's mother on the phone. All questions were answered. Continue all other medications and plan of care. Thank you very much for this consultation. Please do not hesitate to call us with any questions or c oncerns. PATRICK/VENTURA Voice ID: [id number] Report ID: [id number]
[2018-05-29 05:48] LABS: Absolute Lymphocytes (CBC) 2.4 K/uL (0.7-4.9); Absolute Monocytes 0.5 K/uL (0.1-1.3); Eosinophils % 4.9 % (0-4.4); Lymphocytes % 45.5 % (15.3-44.8); MCH 29.4 pg (27.0-35.0); MCV 84.9 fL (80-100); MPV 7.9 fL (7.6-11.3); Monocytes % 10.2 % (3.3-12.3); RBC Red Blood Cell Count 5.06 M/uL (4.33-5.43)
[2018-05-29 05:50] LABS: ALT/SGPT 75 U/L (12-78); AST/SGOT 30 U/L (15-37); Alkaline Phosphatase 81 U/L (45-117); BUN Blood Urea Nitrogen 17 mg/dL (7-18); Bicarbonate 26 mmol/L (21-32); Bilirubin Total 0.2 mg/dL (0.2-1.0); Glucose Level 102 mg/dL (74-106); Potassium 3.9 mmol/L (3.5-5.1); Sodium Level 140 mmol/L (136-145)
[2018-05-29] MEDS ORDERED: POTASSIUM CL SA 10 MEQ TAB PO ONE (06:09)
[2018-05-29] MEDS: INSULIN -REGULAR HUMAN 50 UNIT/0.5 ML ML SQ SCH ×2 (07:30→11:30)
[2018-05-29] MEDS: levETIRAcetam 500 MG TAB PO SCH (09:29)
[2018-05-29] MEDS: LOSARTAN POTASSIUM 50 MG TABLET PO SCH (09:30)
[2018-05-29] MEDS: SPIRONOLACTONE 25 MG TABLET PO SCH (09:30)
--- NOTE | 2018-05-29 10:14 | EKG ---
Test Date: 2018-05-27 Test Time: 08:49:20 Deputy Assessor: BRAD MEASUREMENT RESULTS: Intervals: Rate: 76 CT: 164 QRSD: 84 QT: 398 QTc: 447 [place]: P: 27 CT: 164 QRS: 11 T: 19 INTERPRETIVE STATEMENTS: Normal sinus rhythm Normal ECG Compared to ECG 05/27/2018 05:59:58 No significant changes Electronically Signed On 05-29-18 10:13:49 CDT by Raheem Middleton
--- NOTE | 2018-05-29 10:15 | EKG ---
Test Date: 2018-05-27 Test Time: 05:59:58 Manufacturer'S Service Representative: JANNA MEASUREMENT RESULTS: Intervals: Rate: 81 NE: 156 QRSD: 78 QT: 372 QTc: 432 [place]: P: 10 NE: 156 QRS: -16 T: 14 INTERPRETIVE STATEMENTS: Normal sinus rhythm Normal ECG No previous ECG available for comparison Electronically Signed On 05-29-18 10:14:05 CDT by Raheem Middleton
--- NOTE | 2018-05-29 14:33 | P.DS ---
Admission Date: 05/27/18 Discharge Date: 05/29/18 Primary Care Provider: Dr. Galaviz Disposition: ROUTINE DISCHARGE Discharge Condition: GOOD Reason for Admission: Chest pain - Problems (1) Hypertensive urgency Onset Date: 05/29/18 Status: Acute (2) Tuberous sclerosis Onset Date: 05/29/18 Status: Chronic (3) Seizures Onset Date: 05/29/18 Status: Chronic Brief History of Present Illness: 28-year-old male with significant past medical history of seizures and tuberous sclerosis who presented to the ED complaining of having some chest pain. Patient stated that his pain started this morning around 1:30 a.m. and was radiating down to his abdomen and back and thus decided to come to the ER. Patient stated that he woke up his mom as the pain was getting excruciating and he was not able to tolerate it. Patient also had high blood pressure when he presented to the ER. Patient has similar episodes in the past in September where he was noted to have rupture of his left renal artery and was life flighted to [place] and [facility] for embolization. At that time he had renal embolization to the left and the right renal arteries. After which she has been doing well with no acute abnormalities. Patient denies having any fever chills nausea vomiting or any other associated symptoms at this time In the ER patient had troponin x2 that were negative negative EKG changes. Patient did however have elevated LFTs along with blood pressure and thus was admitted for further workup of secondary hypertension given the history of chronic kidney disease. Hospital Course: Overall during the hospital stay patient remained stable Patient was initially admitted to the hospital for hypertensive urgency. Patient has extensive past medical history of tuberous sclerosis with renal artery embolization. Was a concern for secondary hypertension secondary to renal artery stenosis had extensive workup done here in the hospital along with [place] [facility] couple weeks ago. Patient has negative renal artery stenosis at that time nephrology was consulted who recommended the patient be started on losartan and spironolactone for blood pressure control. Patient's blood pressure was controlled on spironolactone and losartan and thus was discharged home under stable condition. Patient was asked to follow up with primary care provider and nephrology on discharge. Patient also had renin and aldosterone levels done here in the hospital to evaluate further for any other secondary hypertension. Those labs will be followed up by primary care doctor nephrology at the followup visit. Patient and family demonstrated understanding and thus was discharged home under stable condition. It was also thought that patient's hypertension was most likely secondary to his new chemotherapy medication and this was asked to hold it until he sees his primary care provider in next couple of days. Patient again demonstrated understanding and thus was discharged home under stable condition Vital Signs/Physical Exam: Temp Pulse Resp BP Pulse Ox 97.8 F 66 20 113/70 96 05/29/18 08:00 05/29/18 08:00 05/29/18 08:00 05/29/18 08:00 05/29/18 08:00 General: Alert, In no apparent distress HEENT: Atraumatic, PERRLA, EOMI Neck: Supple, JVD not distended Respiratory: Clear to auscultation bilaterally, Normal air movement Cardiovascular: Regular rate/rhythm, Normal S1 S2 Gastrointestinal: Normal bowel sounds, No tenderness Musculoskeletal: No tenderness Integumentary: No rashes Neurological: Normal speech, Normal tone, Normal affect Lymphatics: No axilla or inguinal lymphadenopathy Laboratory Data at Discharge: WBC 5.3 K/uL (4.3-10.9) 05/29/18 05:16 Hgb 14.9 g/dL (13.6-17.9) 05/29/18 05:16 Hct 43.0 % (39.6-49.0) 05/29/18 05:16 Plt Count 298 K/uL (152-406) 05/29/18 05:16 PT 12.2 SECONDS (9.5-12.5) 05/27/18 06:25 INR 1.03 05/27/18 06:25 Sodium 140 mmol/L (136-145) 05/29/18 05:16 Potassium 3.9 mmol/L (3.5-5.1) 05/29/18 05:16 BUN 17 mg/dL (7-18) 05/29/18 05:16 Creatinine 0.90 mg/dL (0.55-1.3) 05/29/18 05:16 Glucose 102 mg/dL (74-106) 05/29/18 05:16 Phosphorus 4.2 mg/dL (2.5-4.9) 05/28/18 05:00 Magnesium 2.0 mg/dL (1.8-2.4) 05/28/18 05:00 Total Bilirubin 0.2 mg/dL (0.2-1.0) 05/29/18 05:16 AST 30 U/L (15-37) 05/29/18 05:16 ALT 75 U/L (12-78) 05/29/18 05:16 Alkaline Phosphatase 81 U/L (45-117) 05/29/18 05:16 Home Medications: RX: Dexamethasone [Decadron] 10 ml PO Q6H 05/27/18 RX: Divalproex Sodium [Divalproex Sodium ER] 1,500 mg PO BEDTIME 05/27/18 RX: Everolimus [Afinitor] 10 mg PO DAILY 05/27/18 RX: levETIRAcetam [Levetiracetam] 1,000 mg PO DAILY 05/27/18 RX: levETIRAcetam [Levetiracetam] 1,500 mg PO BEDTIME 05/27/18 RX: Losartan Potassium [Cozaar*] 50 mg PO DAILY #30 tablet 05/29/18 RX: Spironolactone [Aldactone*] 25 mg PO DAILY #30 tab 05/29/18 New Medications: RX: Losartan Potassium [Cozaar*] 50 mg PO DAILY #30 tablet RX: Spironolactone [Aldactone*] 25 mg PO DAILY #30 tab Diet: Regular Activity: Ad jody Followup: Rigoberto Smallwood DO [ACTIVE - CAN ADMIT] - 1 Week Ralph Galaviz DO [Primary Care Provider] - 1 Week
[2018-05-30 14:09] VITALS: BP 114/81; TEMP 97
== END 2018-05-29 12:50 | disposition home or self-care (01) ==
LOC: ER 05:51 → ERHOLD 09:10 → 2ND 14:00
PROVIDERS: ADMIT Family Medicine; ATTEND Family Medicine
DX: I16.0 Hypertensive urgency (principal); Q85.1 Tuberous sclerosis; R56.9 Unspecified convulsions; Z87.891 Personal history of nicotine dependence
CPT/HCPCS: 36415; 71045; 71275; 74176; 76770; 80048; 80053; 80076; 80164; 80307; 81003; 82088; 82533; 82962; 83735; 83880; 84100; 84244; 84484; 85025; 85379; 85610; 93005; 93975; 96374; 96375; 99285; G0378; J3475; Q9966

== ENCOUNTER 2018-07-31 19:27 | Emergency (ER) | payer OTHER ==
--- OUTSIDE RECORDS SUMMARY | 2018-07-31 19:29 | XMS REPORT ---
:1990 [facility] Address [address] [place] [address] Care Team Providers Name Role Phone Unavailable Unavailable Unavailable Problems This patient has no known problems. Allergies, Adverse Reactions, Alerts This patient has no known allergies or adverse reactions. Medications This patient has no known medications.
--- NOTE | 2018-07-31 20:26 | RAD REPORT ---
EXAM DESCRIPTION: RAD - Ankle Left 3 View - 07/31/2018 8:13 pm CLINICAL HISTORY: Twisting injury, fall, ankle pain COMPARISON: None. FINDINGS: Transverse fracture of the distal fibula is present. No distraction or angulation deformit y. No other fracture finding seen. No joint effusion seen. No joint space narrowing. Lateral soft tis robi swelling is present. IMPRESSION: Nondisplaced transverse fracture distal left fibula.
--- NOTE | 2018-07-31 20:46 | EDPHYS ---
Physician Documentation [facility] Name: Brady Mejia Age: 28 yrs Sex: Male : 1990 Arrival Date: 07/31/2018 Time: 19:31 Bed 24 Private MD: Raj Walton ED Physician Fredy Carvajal HPI: 07/31 20:43 This 28 yrs old Male presents to ER via Wheelchair with complaints of Ankle kb Injury. 20:43 The patient presents with an injury, pain, that is acute, swelling, tenderness. The kb complaints affect the left ankle. Onset: The symptoms/episode began/occurred just prior to arrival. Context: The problem was sustained outdoors, resulted from the patient falling, The patient is unable to bear weight. The patient is not able to ambulate. Associated signs and symptoms: Pertinent positives: swelling, Pertinent negatives: calf tenderness, fever, nausea, numbness, rash, tingling, vomiting, warmth, weakness. Modifying factors: The symptoms are alleviated by nothing, the symptoms are aggravated by weight bearing, movement. Severity of symptoms: At their worst the symptoms were moderate, in the emergency department the symptoms are unchanged. The patient has not experienced similar symptoms in the past. The patient has not recently seen a physician. Historical: - Allergies: 19:41 No Known Allergies; lp1 - Home Meds: 19:41 Depakote ER 500 mg Oral Tb24 3 tabs nightly [Active]; Keppra 500 mg Oral tab 3 tabs 2 lp1 times per day [Active]; losartan oral oral [Active]; Spironolactone Oral [Active]; - PMHx: 19:41 Seizures; Tuberous Sclerosis; Hypertension; lp1 - PSHx: 19:41 Kidney surgery; lp1 - Immunization history:: Adult Immunizations up to date. - Social history:: Smoking status: Patient/guardian denies using tobacco. - Ebola Screening: : No symptoms or risks identified at this time. ROS: 20:40 Constitutional: Negative for fever, chills, and weight loss, Cardiovascular: Negative kb for chest pain, palpitations, and edema, Respiratory: Negative for shortness of breath, cough, wheezing, and pleuritic chest pain, Abdomen/GI: Negative for abdominal pain, nausea, vomiting, diarrhea, and constipation, Skin: Negative for injury, rash, and discoloration, Neuro: Negative for headache, weakness, numbness, tingling, and seizure. 20:40 MS/extremity: Positive for injury or acute deformity, pain, swelling, tenderness, of the left lateral ankle. Exam: 20:40 Constitutional: This is a well developed, well nourished patient who is awake, alert, kb and in no acute distress. Head/Face: Normocephalic, atraumatic. Chest/axilla: Normal chest wall appearance and motion. Nontender with no deformity. No lesions are appreciated. Cardiovascular: Regular rate and rhythm with a normal S1 and S2. No gallops, murmurs, or rubs. Normal PMI, no JVD. No pulse deficits. Respiratory: Lungs have equal breath sounds bilaterally, clear to auscultation and percussion. No rales, rhonchi or wheezes noted. No increased work of breathing, no retractions or nasal flaring. Abdomen/GI: Soft, non-tender, with normal bowel sounds. No distension or tympany. No guarding or rebound. No evidence of tenderness throughout. Skin: Warm, dry with normal turgor. Normal color with no rashes, no lesions, and no evidence of cellulitis. Neuro: Awake and alert, GCS 15, oriented to person, place, time, and situation. Cranial nerves II-XII grossly intact. Motor strength 5/5 in all extremities. Sensory grossly intact. Cerebellar exam normal. Normal gait. 20:40 Musculoskeletal/extremity: Extremities: grossly normal except: noted in the left lateral ankle: pain, swelling, tenderness, ROM: intact in all extremities, Circulation is intact in all extremities. Sensation intact. Vital Signs: 19:41 BP 127 / 95; Pulse 89; Resp 18; Temp 97.1(TE); Pulse Ox 98% on R/A; Weight 98.43 kg; lp1 Height 5 ft. 11 in. (180.34 cm); Pain 7/10; 21:04 BP 124 / 70; Pulse 77; Resp 18; Pulse Ox 99% on R/A; Pain 4/10; ls4 19:41 Body Mass Index 30.27 (98.43 kg, 180.34 cm) lp1 MDM: 20:06 Patient medically screened. kb 20:40 Data reviewed: vital signs, nurses notes. Data interpreted: Pulse oximetry: on room air kb is 98 %. Interpretation: normal. 20:43 Counseling: I had a detailed discussion with the patient and/or guardian regarding: the kb historical points, exam findings, and any diagnostic results supporting the discharge/admit diagnosis, radiology results, the need for outpatient follow up, a orthopedic surgeon, to return to the emergency department if symptoms worsen or persist or if there are any questions or concerns that arise at home. 07/31 19:40 Order name: Ankle Left 3 View XRAY; Complete Time: 20:32 lp1 07/31 20:35 Order name: Short Leg Splint; Complete Time: 21:11 kb 07/31 20:35 Order name: Crutches; Complete Time: 21:11 kb Administered Medications: No medications were administered Disposition: 08/01 01:27 Co-signature as Attending Physician, Fredy Carvajal MD. rn Disposition: 07/31/18 20:45 Discharged to Home. Impression: Nondisplaced transverse fracture of shaft of left fibula. - Condition is Stable. - Discharge Instructions: Cast or Splint Care, Nofo-ag-Cpyj, Ankle Fracture, Ladb-[id number]-Rcdp. - Prescriptions for Tylenol- Codeine #3 300-30 mg Oral Tablet - take 1 tablet by ORAL route every 6 hours As needed; 15 tablet. - Medication Reconciliation Form, Thank You Letter, Antibiotic Education, Prescription Opioid Use form. - Follow up: Private Physician; When: 2 - 3 days; Reason: Recheck today's complaints, Continuance of care, Re-evaluation by your physician. Follow up: Emergency Department; When: As needed; Reason: Worsening of condition. Signatures: Dispatcher [employer] EDMD Nydia Cabello, GAS REFRIGERATOR SERVICER-C GAS REFRIGERATOR SERVICER-Ckb Fredy Carvajal MD MD rn Pena, Laura RN RN lp1 Alayna Hodges RN RN ls4 Corrections: (The following items were deleted from the chart) 07/31 21:12 20:45 07/31/2018 20:45 Discharged to Home. Impression: Nondisplaced transverse fracture ls4 of shaft of left fibula. Condition is Stable. Forms are Medication Reconciliation Form, Thank You Letter, Antibiotic Education, Prescription Opioid Use. Follow up: Private Physician; When: 2 - 3 days; Reason: Recheck today's complaints, Continuance of care, Re-evaluation by your physician. Follow up: Emergency Department; When: As needed; Reason: Worsening of condition. kb
--- NOTE | 2018-07-31 20:46 | ER ---
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 Transition of care: patient was not received from another setting of care. Onset of symptoms was July 31, 2018 at 18:30. Risk Assessment: Do you want to hurt yourself or someone else? Patient reports no desire to harm self or others. Initial Sepsis Screen: Does the patient meet any 2 criteria? No. Patient's initial sepsis screen is negative. Does the patient have a suspected source of infection? No. Patient's initial sepsis screen is negative. Care prior to arrival: None. 19:38 Method Of Arrival: Wheelchair lp1 19:38 Acuity: NARA 4 lp1 Triage Assessment: 19:42 General: Appears in no apparent distress. Behavior is calm. Musculoskeletal: Bony lp1 deformity noted of left lateral ankle. Historical: - Allergies: 19:41 No Known Allergies; lp1 - Home Meds: 19:41 Depakote ER 500 mg Oral Tb24 3 tabs nightly [Active]; Keppra 500 mg Oral tab 3 tabs 2 lp1 times per day [Active]; losartan oral oral [Active]; Spironolactone Oral [Active]; - PMHx: 19:41 Seizures; Tuberous Sclerosis; Hypertension; lp1 - PSHx: 19:41 Kidney surgery; lp1 - Immunization history:: Adult Immunizations up to date. - Social history:: Smoking status: Patient/guardian denies using tobacco. - Ebola Screening: : No symptoms or risks identified at this time. Screenin:46 Abuse screen: Denies threats or abuse. Denies injuries from another. Nutritional ls4 screening: No deficits noted. Tuberculosis screening: No symptoms or risk factors identified. Fall Risk None identified. Assessment: 20:35 General: Appears in no apparent distress. uncomfortable, Behavior is calm, cooperative. ls4 Pain: Complains of pain in left lateral ankle Pain currently is 8 out of 10 on a pain scale. Quality of pain is described as aching, pressure, Pain began suddenly. Neuro: No deficits noted. Cardiovascular: No deficits noted. Respiratory: No deficits noted. Derm: No deficits noted. Musculoskeletal: Circulation, motion, and sensation intact. Capillary refill < 3 seconds, Range of motion: limited in left leg Bony deformity noted of left lateral ankle Swelling present in left leg. Vital Signs: 19:41 BP 127 / 95; Pulse 89; Resp 18; Temp 97.1(TE); Pulse Ox 98% on R/A; Weight 98.43 kg; lp1 Height 5 ft. 11 in. (180.34 cm); Pain 7/10; 21:04 BP 124 / 70; Pulse 77; Resp 18; Pulse Ox 99% on R/A; Pain 4/10; ls4 19:41 Body Mass Index 30.27 (98.43 kg, 180.34 cm) lp1 ED Course: 19:31 Patient arrived in ED. am2 19:31 Raj Walton MD is Private Physician. am2 19:39 Triage completed. lp1 19:41 Arm band placed on left wrist. lp1 19:45 Patient has correct armband on for positive identification. Bed in low position. Side ls4 rails up X 1. 19:54 [facility]ello [facility]-C [facility] kb 19:54 Fredy Carvajal MD is Attending Physician. kb 20:08 Alayna Hodges, SANCHO is Primary Nurse. ls4 20:12 Ankle Left 3 View XRAY In Process Unspecified. EDMS 20:14 Patient taken to [facility], via wheelchair. az 20:45 Crutch training done. Orthoglass splint: Posterior long leg splint applied on left leg. ls4 21:09 No provider procedures requiring assistance completed. ls4 21:09 Patient did not have IV access during this emergency room visit. ls4 Administered Medications: No medications were administered Outcome: 20:45 Discharge ordered by . kb 21:08 Discharged to home ambulatory, with crutches, with family. ls4 21:08 Condition: stable 21:08 Discharge instructions given to patient, family, Instructed on discharge instructions, follow up and referral plans. medication usage, safety practices, crutch walking, Demonstrated understanding of instructions, follow-up care, medications, Prescriptions given X 1. 21:12 Patient left the ED. ls4 Signatures: Dispatcher [employer] EDNydia Link, LAY BRO-Jennifer Whittington, RN RN lp1 Anna Adrian am2 Sarah Fischer Lisa, RN RN ls4
[2018-07-31 22:25] VITALS: TEMP 97.1
[2018-07-31 22:26] VITALS: BP 124/70; O2SAT 99
== END 2018-07-31 21:12 | disposition home or self-care (01) ==
LOC: ER 19:27
PROC: 2W3MX1Z Immobilization of Left Lower Extremity using Splint (ICD-10-PCS; principal; 2018-07-31)
DX: S82.425A Nondisplaced transverse fracture of shaft of left fibula, initial encounter for closed fracture (principal); W19.XXXA Unspecified fall, initial encounter; Y93.9 Activity, unspecified; Y92.89 Other specified places as the place of occurrence of the external cause; I10 Essential (primary) hypertension; G40.909 Epilepsy, unspecified, not intractable, without status epilepticus
CPT/HCPCS: 99283

== ENCOUNTER 2019-05-12 21:30 | Emergency (ER) | payer OTHER ==
[2019-05-13] MEDS ORDERED: HYDROCODONE/APAP 10/325 TAB ONE (01:38)
--- NOTE | 2019-05-13 01:42 | ER ---
Nurse's Notes [facility] Name: Brady Mejia Age: 28 yrs Sex: Male : 1990 Arrival Date: 05/12/2019 Time: 21:34 Bed 24 Private MD: Diagnosis: Left Distal Fibular Fracture;Metatarsal Fracture Presentation: 05/12 21:53 Presenting complaint: Patient states: \T\ 2030H i was walking in the pool area and i mg2 slipped and i twisted my ankle. swelling noted. 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 Transition of care: patient was not received from another setting of care. Onset of symptoms was May 12, 2019 at 20:30. Risk Assessment: Do you want to hurt yourself or someone else? Patient reports no desire to harm self or others. Initial Sepsis Screen: Does the patient meet any 2 criteria? No. Patient's initial sepsis screen is negative. Does the patient have a suspected source of infection? No. Patient's initial sepsis screen is negative. Care prior to arrival: None. 21:53 Method Of Arrival: Wheelchair mg2 21:53 Acuity: NARA 3 mg2 Historical: - Allergies: 21:56 No Known Allergies; mg2 - Home Meds: 21:56 Depakote ER 500 mg Oral Tb24 3 tabs nightly [Active]; Keppra 500 mg Oral tab 3 tabs 2 mg2 times per day [Active]; losartan Oral [Active]; Spironolactone Oral [Active]; clobazam oral oral [Active]; - PMHx: 21:56 Hypertension; Seizures; Tuberous Sclerosis; mg2 - PSHx: 21:56 kidney tumor removal; mg2 - Immunization history:: Flu vaccine is up to date. - Social history:: Smoking status: Patient/guardian denies using tobacco, Patient/guardian denies using alcohol, street drugs, IV drugs. - Ebola Screening: : No symptoms or risks identified at this time. Screenin/29 02:09 Abuse screen: Denies threats or abuse. Nutritional screening: No deficits noted. ad1 Tuberculosis screening: No symptoms or risk factors identified. Fall Risk None identified. Assessment: 05/12 22:39 General: Appears uncomfortable, Behavior is calm, cooperative, appropriate for age. ad1 Pain: Complains of pain in left ankle Pain currently is 8 out of 10 on a pain scale. Respiratory: No deficits noted. Airway is patent. GI: No signs and/or symptoms were reported involving the gastrointestinal system. : No signs and/or symptoms were reported regarding the genitourinary system. EENT: No signs and/or symptoms were reported regarding the EENT system. Musculoskeletal: Swelling present in left ankle with redness noted. 23:40 Reassessment: Patient appears in no apparent distress at this time. No changes from ad1 previously documented assessment. Patient and/or family updated on plan of care and expected duration. Pain level reassessed. Patient is alert, oriented x 3, equal unlabored respirations, skin warm/dry/pink. 05/13 00:16 Reassessment: Patient appears in no apparent distress at this time. No changes from ad1 previously documented assessment. Patient and/or family updated on plan of care and expected duration. Pain level reassessed. Patient is alert, oriented x 3, equal unlabored respirations, skin warm/dry/pink. Pain:. Pain: Complains of pain in Left ankle and pain Pain currently is 2 out of 10 on a pain scale. 01:00 Reassessment: No changes from previously documented assessment. Patient and/or family ad1 updated on plan of care and expected duration. Pain level reassessed. Patient is alert, oriented x 3, equal unlabored respirations, skin warm/dry/pink. General:. 01:38 Reassessment: No changes from previously documented assessment. Patient and/or family ad1 updated on plan of care and expected duration. Pain level reassessed. medicated for pain at this time. Vital Signs: 05/12 21:57 BP 137 / 105; Pulse 86; Resp 18; Temp 98.1(O); Pulse Ox 98% on R/A; Weight 93.89 kg; mg2 Height 5 ft. 11 in. (180.34 cm); Pain 8; 05/13 00:14 BP 108 / 84; Pulse 58; Resp 16; Pulse Ox 97% ; ad1 01:20 BP 106 / 78; Pulse 70; Resp 16; Pulse Ox 99% ; ad1 02:01 BP 116 / 88; Pulse 60; Resp 18; Pulse Ox 99% ; ad1 05/12 21:57 Body Mass Index 28.87 (93.89 kg, 180.34 cm) mg2 ED Course: 05/12 21:34 Patient arrived in ED. cf2 21:54 Triage completed. mg2 21:57 Arm band placed on. [facility] 22:09 Aníbal Arredondo PA is [facility] 22:09 Brian Greenwood MD is Attending Physician. [facility] 05/13 00:08 Foot Left 3 View XRAY In Process Unspecified. EDMS 00:08 Ankle Left 3 View XRAY In Process Unspecified. EDMS 01:36 Orthoglass splint: Posterior short lleg splint applied on stirrup splint applied on oe left leg. 02:09 Patient has correct armband on for positive identification. ad1 02:09 No provider procedures requiring assistance completed. Patient did not have IV access ad1 during this emergency room visit. Administered Medications: 01:38 Drug: [place] 10 mg-325 mg 1 tabs Route: PO; ad1 Outcome: 01:41 Discharge ordered by MD. jmm 02:08 Discharged to home via wheelchair. ad1 02:08 Condition: stable 02:08 Discharge instructions given to patient, family, Instructed on discharge instructions, follow up and referral plans. no driving heavy equipment, medication usage, Demonstrated understanding of instructions, follow-up care, medications, Prescriptions given X 1. 02:18 Patient left the ED. ad1 Signatures: Dispatcher [employer] EDAL Aníbal Arredondo PA PA [facility] Rhea Kohler, RN RN ad1 Akira Angeles Michele, RN RN mg2 Therese Perez cf2 Corrections: (The following items were deleted from the chart) 05/12 21:55 21:53 Presenting complaint: Patient states: \T\ 2030H i was walking in the pool area and mg2 i slipped and i twisted my ankle. swelling noted. [facility] 05/13 02:07 02:05 Reassessment: No changes from previously documented assessment. Patient and/or ad1 family updated on plan of care and expected duration. Pain level reassessed. medicated for pain at this time ad1
--- NOTE | 2019-05-13 01:43 | EDPHYS ---
Physician Documentation [facility] Name: Brady Mejia Age: 28 yrs Sex: Male : 1990 Arrival Date: 05/12/2019 Time: 21:34 Bed 24 Private MD: ED Physician Brian Greenwood HPI: 05/12 22:56 This 28 yrs old Male presents to ER via Wheelchair with complaints of Ankle jmm Injury. 22:56 The patient presents with an injury, pain, that is acute. Onset: The symptoms/episode jmm began/occurred acutely, just prior to arrival. Associated signs and symptoms: Pertinent positives: swelling. Modifying factors: The symptoms are alleviated by nothing, the symptoms are aggravated by weight bearing. This is a 28 year old male with a history of htn that presents to the ED with complaints of swelling and pain to his left ankle. Patient states he slipped on water and twisted his ankle. Patient denies other injury. . Historical: - Allergies: 21:56 No Known Allergies; mg2 - Home Meds: 21:56 Depakote ER 500 mg Oral Tb24 3 tabs nightly [Active]; Keppra 500 mg Oral tab 3 tabs 2 mg2 times per day [Active]; losartan Oral [Active]; Spironolactone Oral [Active]; clobazam oral oral [Active]; - PMHx: 21:56 Hypertension; Seizures; Tuberous Sclerosis; mg2 - PSHx: 21:56 kidney tumor removal; mg2 - Immunization history:: Flu vaccine is up to date. - Social history:: Smoking status: Patient/guardian denies using tobacco, Patient/guardian denies using alcohol, street drugs, IV drugs. - Ebola Screening: : No symptoms or risks identified at this time. ROS: 22:56 Constitutional: Negative for fever, chills, and weight loss, Cardiovascular: Negative jmm for chest pain, palpitations, and edema, Respiratory: Negative for shortness of breath, cough, wheezing, and pleuritic chest pain. 22:56 MS/extremity: Positive for injury or acute deformity, pain, swelling. 22:56 All other systems are negative. Exam: 22:56 Constitutional: This is a well developed, well nourished patient who is awake, alert, jmm and in no acute distress. Head/Face: atraumatic. Eyes: EOMI, no conjunctival erythema appreciated ENT: Moist Mucus Membranes Neck: Trachea midline, Supple Chest/axilla: Normal chest wall appearance and motion. Cardiovascular: Regular rate and rhythm. No edema appreciated Respiratory: Normal respirations, no respiratory distress appreciated Abdomen/GI: Non distended, soft Back: Normal ROM 22:56 Musculoskeletal/extremity: swelling noted to the left foot, left ankle, pain on palpation of the left 5th metatarsal, full dorsalis pulse, NVI. 22:56 Skin: Appearance: erythema. 22:56 Neuro: Orientation: is normal, Mentation: is normal, Memory: is normal. 22:56 Psych: Behavior/mood is pleasant, cooperative. Vital Signs: 21:57 BP 137 / 105; Pulse 86; Resp 18; Temp 98.1(O); Pulse Ox 98% on R/A; Weight 93.89 kg; mg2 Height 5 ft. 11 in. (180.34 cm); Pain 8/10; 05/13 00:14 BP 108 / 84; Pulse 58; Resp 16; Pulse Ox 97% ; ad1 01:20 BP 106 / 78; Pulse 70; Resp 16; Pulse Ox 99% ; ad1 02:01 BP 116 / 88; Pulse 60; Resp 18; Pulse Ox 99% ; ad1 05/12 21:57 Body Mass Index 28.87 (93.89 kg, 180.34 cm) mg2 Procedures: 01:30 Splinting: Splint applied to left foot using Orthoglass splint, Examined by me, post [facility] splint application: neurovascular intact, 2+ distal pulses palpable, brisk capillary refill noted, Patient tolerated well. MDM: 05/12 22:52 Patient medically screened. [facility] 05/13 01:30 Data reviewed: vital signs, nurses notes. [facility] 01:37 Data reviewed: radiologic studies, plain films. Counseling: I had a detailed discussion [facility] with the patient and/or guardian regarding: the historical points, exam findings, and any diagnostic results supporting the discharge/admit diagnosis, radiology results, the need for outpatient follow up, to return to the emergency department if symptoms worsen or persist or if there are any questions or concerns that arise at home. ED course: Patient advised to follow up with ortho for reevaluation. patient was otherwise given strict return precautions. patient understood and agrees with the plan of care. . 05/12 22:56 Order name: Foot Left 3 View XRAY [facility] 05/12 22:56 Order name: Ankle Left 3 View XRAY [facility] 05/13 00:45 Order name: Posterior Orthoglass Ankle Splint: with stirrup; Complete Time: 01:34 [facility] 05/13 01:41 Order name: Crutches; Complete Time: 01:55 [facility] Administered Medications: 01:38 Drug: [place] 10 mg-325 mg 1 tabs Route: PO; ad1 Disposition: 05/13/19 01:41 Discharged to Home. Impression: Left Distal Fibular Fracture, Metatarsal Fracture. - Condition is Stable. - Discharge Instructions: Ankle Fracture, Metatarsal Fracture. - Prescriptions for Ibuprofen 800 mg Oral Tablet - take 1 tablet by ORAL route every 8 hours As needed take with food; 30 tablet. - Medication Reconciliation Form, Thank You Letter, Antibiotic Education, Prescription Opioid Use form. - Follow up: Private Physician; When: 2 - 3 days; Reason: Recheck today's complaints, Continuance of care, Re-evaluation by your physician. Addendum: 05/15/2019 14:59 Co-signature as Attending Physician, Brian Greenwood MD. g s Signatures: Dispatcher [employer] EDMS Aníbal Arredondo PA PA [facility] Rhea Kohler RN RN ad1 Brian Greenwood MD MD Azar Rodgers RN RN mg2 Corrections: (The following items were deleted from the chart) 05/13 02:18 01:41 05/13/2019 01:41 Discharged to Home. Impression: Left Distal Fibular Fracture; ad1 Metatarsal Fracture. Condition is Stable. Forms are Medication Reconciliation Form, Thank You Letter, Antibiotic Education, Prescription Opioid Use. Follow up: Private Physician; When: 2 - 3 days; Reason: Recheck today's complaints, Continuance of care, Re-evaluation by your physician. [facility]
[2019-05-13 02:23] VITALS: TEMP 98.1
[2019-05-13 02:25] VITALS: O2SAT 99
[2019-05-13 02:26] VITALS: BP 116/88
--- NOTE | 2019-05-13 09:22 | RAD REPORT ---
EXAM DESCRIPTION: RAD - Foot Left 3 View - 05/13/2019 12:03 am CLINICAL HISTORY: Twisting injury, foot pain COMPARISON: Left ankle July 2018 FINDINGS: Transverse fracture is present at the base of the fifth metatarsal. 1-2 mm of distraction at the fracture site. No fracture, dislocation or periosteal reaction elsewhere in the foot. No air or foreign body in the soft tissues. Small sclerotic foci in the calcaneus are present similar to the prior study. These are most likely benign. IMPRESSION: Transverse fracture base of the fifth metatarsal as detailed. Mild distraction of 1-2 mm .
--- NOTE | 2019-05-13 09:25 | RAD REPORT ---
EXAM DESCRIPTION: RAD - Ankle Left 3 View - 05/13/2019 12:04 am CLINICAL HISTORY: Twisting injury, left foot and ankle pain COMPARISON: Left ankle July 2018 FINDINGS: The patient had transverse fracture of the distal fibula on the prior study. Fracture plan e is still evident 9 months after the injury. Possible of a recurrent fracture at this site is possib le. If present, the fracture does not have distraction. Lateral soft tissue swelling is present. No j oint effusion seen. No joint space narrowing. No soft tissue abnormality. IMPRESSION: Faint lucency remains at the transverse fibula fracture site that occurred July 2018 . Recurrence of the fracture is possible given the 9 month interval since prior [facility] or recurrent lucency. Any possible recurrence would likely be adequately treated by the therapy us ed for the fifth metatarsal fracture which has been separately detailed.
== END 2019-05-13 02:18 | disposition home or self-care (01) ==
LOC: ER 21:30
PROC: 2W3RX1Z Immobilization of Left Lower Leg using Splint (ICD-10-PCS; principal; 2019-05-13)
DX: S82.832A Other fracture of upper and lower end of left fibula, initial encounter for closed fracture (principal); S92.302A Fracture of unspecified metatarsal bone(s), left foot, initial encounter for closed fracture; W01.0XXA Fall on same level from slipping, tripping and stumbling without subsequent striking against object, initial encounter; Y93.9 Activity, unspecified; Y92.9 Unspecified place or not applicable; I10 Essential (primary) hypertension; G40.909 Epilepsy, unspecified, not intractable, without status epilepticus
CPT/HCPCS: 99284

== ENCOUNTER 2020-06-07 11:23 | Emergency (ER) | payer OTHER ==
--- OUTSIDE RECORDS SUMMARY | 2020-06-07 11:24 | XMS REPORT | Continuity of Care Document ---
:1990 Author Organization [facility] t Address [address] [place] [address] Care Team Providers Name Role Phone Jagdish Chen MD Attending Clinician Fede FERNANDEZ Attending Clinician Christina KINGSLEY M Attending Clinician Unavailable Bal VALLE Attending Clinician Doctor Unassigned, Name Attending Clinician Unavailable Problems This patient has no known problems. Allergies, Adverse Reactions, Alerts This patient has no known allergies or adverse reactions. Medications This patient has no known medications. Procedures This patient has no known procedures. Encounters Start End Encounter Admission Attending Care Care Encounter Source Date/Time Date/Time Type Type Clinicians Facility Department ID 2020-04-22 2020-04-22 Telephone DARYA Chen [id number] 00:00:00 00:00:00 Romeo Vick 350..13.10 [place] 4.2.7.2.686 Professmickie [id number] [address] 2020-04-22 2020-04-22 Refill DARYA Chen [id number] 00:00:00 00:00:00 Romeo Vick 350.1.13.10 [place] 4.2.7.2.686 Professio [phone] [address] 2020-04-21 2020-04-21 Telephone CATINA Mistry [id number] 00:00:00 00:00:00 Sandra COPELAND 350.1.13.10 [facility] 4.2.7.2.686 [id number] 2020-04-19 2020-04-19 Nurse Nisha Vasquez [id number] 00:00:00 00:00:00 Triage MIN [id number] [facility] 4.2.7.2.686 [id number] 2020-04-19 2020-04-19 Telephone April [facility] [id number] 00:00:00 00:00:00 Romeo Vick 350.1.13.10 [place] 4.2.7.2.686 Profess[place] [phone] [address] 2019-09-24 2019-09-24 Office [facility] [id number] 10:52:50 11:19:51 Visit Nicanor medina 350.1.13.10 Jessica Cormier 4.2.7.2.686 [place] [phone] [address] 2019-09-24 2019-09-24 Orders Doctor CATINA [id number] 00:00:00 00:00:00 Only Unassigned, MIN 350.1.13.10 [place] [address]686 [id number] Results This patient has no known results.
--- OUTSIDE RECORDS SUMMARY | 2020-06-07 11:25 | XMS REPORT | Summary of Care ---
:1990 Author Organization [facility] Address [address] [place] [address] Care Team Providers Name Role Phone Pcp, Does Not Have A Primary Care Provider Reason for Visit Reason Comments Refill Request Encounter Details Date Type Department Care Team Description 04/21/2020 Telephone [facility] and Sandra Kennedy MD Refill Request [address] [address] [place], [place] [phone] Allergies No Known Allergiesdocumented as of this encounter (statuses as of 04/21/2020) Medications Medication Sig Dispensed Refills Start Date End Date Status HYDROcodone-acetami Take 1 20 tablet 0 09/22/2017 Active nophen 5-325 mg tablet by tablet mouth every 6 (six) hours as needed for Pain (scale 4-6) or Pain (scale 7-10). dexamethasone 0.1 Take 10 mL 1200 mL 1 03/20/2018 Active mg/mL solution by mouth every 6 (six) hours. acetaminophen Take by 0 Active (TYLENOL) 325 mg mouth. Cap acetaminophen Take 500 mg 0 Acti ve (TYLENOL EXTRA by mouth STRENGTH) 500 mg every 6 tablet (six) hours as needed for Pain. spironolactone 25 TAKE 1 1 09/27/2018 A ctive mg tablet TABLET BY MOUTH ONCE A DAY telmisartan 40 mg TAKE 1 0 09/21/2018 A ctive tablet TABLET BY MOUTH ONCE A DAY divalproex ER 500 Take 3 90 tablet 11 09/24/2019 A ctive mg 24 hr tablets by tabletIndications: mouth at Seizures, bedtime. Therapeutic drug monitoring levETIRAcetam 500 Take 2 tabs 150 tablet 11 09/24/2019 Active mg in am and 3 tabletIndications: tabs in pm Seizures cloBAZam (ONFI) 10 Take 10 mg 30 tablet 1 04/21/2020 Active mg TabIndications: by mouth at Seizures bedtime. cloBAZam (ONFI) 10 Take 10 mg 30 tablet 5 09/24/2019 Discontinued mg TabIndications: by mouth at 0 (Reorder) Seizures bedtime. 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 Spoke with patient's mother. Informed her that patient should call to schedule clinic appointment with Neurology. Dr. Patrick Mistry documented in this encounter Plan of Treatment Date Type Specialty Care Team Description 09/29/2020 Office Visit Neurology Romeo Chen MD [address] [place] [address]. [place] [phone] Health Maintenance Due Date Last Done Comments VARICELLA VACCINES (1 of 2 - 1991 2-dose childhood series) DTaP,Tdap,and Td Vaccines (1 - 2009 Tdap) INFLUENZA VACCINE (#1) 2020 Depression Screening 09/24/2020 09/24/2019 PNEUMOCOCCAL 0-64 YEARS COMBINED Aged Out No longer eligible based on SERIES patient's age to complete this topic documented as of this encounter Results Not on filedocumented in this encounter Visit Diagnoses Diagnosis Seizures Other convulsions documented in this encounter Insurance Payer Benefit Plan / Subscriber ID Effective Dates Phone Addre ss Type Group [facility] [id number] 2018-Present Medicaid COMM PLAN - PLUS MANAGED MEDICAID documented as of this encounter
--- OUTSIDE RECORDS SUMMARY | 2020-06-07 11:25 | XMS REPORT | Summary of Care ---
:1990 Author Organization [facility] Address [address] [place] [address] Care Team Providers Name Role Phone Pcp, Does Not Have A Primary Care Provider Reason for Visit Reason Onset Date Comments Medication Problem 04/19/2020 Encounter Details Date Type Department Care Team Description 04/19/2020 Nurse Triage [facility] Nisha Vasquez apprentice embalmer Problem [address] [place] [phone] Allergies No Known Allergiesdocumented as of this encounter (statuses as of 04/19/2020) Medications Medication Sig Dispensed Refills Start Date End Date Status HYDROcodone-acetaminoph Take 1 tablet by 20 tablet 0 8 Active en 5-325 mg tablet mouth every 6 (six) hours as needed for Pain (scale 4-6) or Pain (scale 7-10). dexamethasone 0.1 mg/mL Take 10 mL by 1200 mL 1 03/20/2018 Active solution mouth every 6 (six) hours. acetaminophen (TYLENOL) Take by mouth. 0 Active 325 mg Cap acetaminophen (TYLENOL Take 500 mg by 0 Active EXTRA STRENGTH) 500 mg mouth every 6 tablet (six) hours as needed for Pain. spironolactone 25 mg TAKE 1 TABLET BY 1 09/27/2018 Active tablet MOUTH ONCE A DAY telmisartan 40 mg TAKE 1 TABLET BY 0 09/21/2018 Active tablet MOUTH ONCE A DAY cloBAZam (ONFI) 10 mg Take 10 mg by 30 tablet 5 09/24/2019 Active TabIndications: mouth at Seizures bedtime. divalproex ER 500 mg 24 Take 3 tablets 90 tablet 11 09/24/2019 Active hr tabletIndications: by mouth at Seizures, Therapeutic bedtime. 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 "My bottle indicates we have threerefills left, but the pharmacy said the prescription last month". [facility] pharmacy in [place], [place] closed at 1800. Discussed with mother other options for mediation tonight. Would like medicationsent to [facility]acy at [address] [place] [address]. 180 [facility] neurology store operations manager about need for medication. 180 Dr Sandra Mistry returned page. Spoke with provider regarding need for medication and pharmacy information in [place]. Given MRN so she could review chart. 182 Re paged store operations manager provider about prescription. 184 Spoke with [facility], informed of conversation with store operations manager provider. MOC voices understanding. RN will continue to monitor chart for refill information and notify [place] if refill is sent to pharmacy. RNwill also route conversation to clinic. Reason for Disposition [1] Request for URGENT new prescription or refill of "essential" medication (i.e., likelihood ofharm to patient if not taken) AND [2] triager unable to fill per unit policy Protocols used: MEDICATION QUESTION [id number] elephone Encounter - Nisha Vasquez RN - 04/19/2020 5:43 PM CDTRegarding: as per MOC completly out med completly cloBAZam (ONFI) 10 mg Tab30 tablet [phone] ----- Message from Stefani Alfonso sent at 04/19/2020 5:25 PM CDT ----- Bradyrj Mejia is a 29 year old male [id number] - [place], [place] - [address] AT [phone] (Phone) documented in this encounter Plan of Treatment Date Type Specialty Care Team Description 09/29/2020 Office Visit Neurology Romeo Chen MD [address] [place], [place] [address]. [place] [address] [phone] Health Maintenance Due Date Last Done Comments VARICELLA VACCINES (1 of 2 - 1991 2-dose childhood series) DTaP,Tdap,and Td Vaccines (1 - 2009 Tdap) INFLUENZA VACCINE (#1) 2020 Depression Screening 09/24/2020 09/24/2019 PNEUMOCOCCAL 0-64 YEARS COMBINED Aged Out No longer eligible based on SERIES patient's age to complete this topic documented as of this encounter Results Not on filedocumented in this encounter Insurance Payer Benefit Plan / Subscriber ID Effective Dates Phone Addre ss Type Group [facility] [id number] 2018-Present Medicaid COMM PLAN - PLUS MANAGED MEDICAID documented as of this encounter
--- OUTSIDE RECORDS SUMMARY | 2020-06-07 11:25 | XMS REPORT | Summary of Care ---
:1990 Author Organization [facility] Address [address] [place] [address] Care Team Providers Name Role Phone Pcp, Does Not Have A Primary Care Provider Reason for Visit Reason Comments Refill Request Encounter Details Date Type Department Care Team Description 04/22/2020 Refill [facility] Romeo Chen MD Refill Request Neurology-[address] [place] [phone] [address] [place] [address] [phone] Allergies No Known Allergiesdocumented as of this encounter (statuses as of 04/23/2020) Medications Medication Sig Dispensed Refills Start Date [...] 09/21/2018 Active tablet MOUTH ONCE A DAY divalproex ER 500 mg 24 Take 3 tablets 90 tablet 11 09/24/2019 Active hr tabletIndications: by mouth at Seizures, Therapeutic bedtime. 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 Needs medication refilled today if possible. Uses [facility] in [place]. documented in this encounter Plan of Treatment Date Type Specialty Care Team Description 04/29/2020 Office Visit Neurology Romeo Chen MD [address] [place] [address] [phone] 09/29/2020 Office Visit Neurology Romeo Chen MD [address] [place] [phone] Health Maintenance Due Date Last Done [...] Effective Dates Phone Addre ss Type Group [facility] [id number] 2018-Present Medicaid COMM PLAN - PLUS MANAGED MEDICAID documented as of this encounter
--- OUTSIDE RECORDS SUMMARY | 2020-06-07 11:25 | XMS REPORT | Summary of Care ---
:1990 Author Organization [facility] Address [address] [place] [address] Care Team Providers Name Role Phone Pcp, Does Not Have A Primary Care Provider Reason for Visit Reason Comments Refill Request Encounter Details Date Type Department Care Team Description 04/22/2020 Telephone [facility] Romeo Chen MD Refill Request Neurology-[address] [place] [phone] [address] [place] [address] [phone] Allergies No Known Allergiesdocumented as of this encounter (statuses as of 04/22/2020) Medications Medication Sig Dispensed Refills Start Date [...] 10 Take 10 mg 30 tablet 1 04/22/2020 Active mg TabIndications: by mouth at Seizures bedtime. cloBAZam (ONFI) 10 Take 10 mg 30 tablet 1 04/21/2020 Discontinued mg TabIndications: by mouth at 0 (Reorder) Seizures bedtime. 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 Patient's mom notified. elephone Encounter - Li Karimi - 04/22/2020 11:15 AM CDTNeed medication for seizure sent back to [facility] in [place] documented in this encounter Plan of Treatment Date Type Specialty Care Team Description 04/29/2020 Office Visit Neurology Romeo Chen MD [address] [place] [address]. [place] [phone] 09/29/2020 Office Visit Neurology Romeo Chen MD [address] [place], [place] [address]. [place], [place] [phone] Health Maintenance Due Date Last [...] Effective Dates Phone Addre ss Type Group [facility] [id number] 2018-Present Medicaid COMM PLAN - PLUS MANAGED MEDICAID documented as of this encounter
--- OUTSIDE RECORDS SUMMARY | 2020-06-07 11:25 | XMS REPORT | Summary of Care ---
:1990 Author Organization [facility] Address [address] [place] [address] Care Team Providers Name Role Phone Pcp, Does Not Have A Primary Care Provider Reason for Visit Reason Comments Refill Request Encounter Details Date Type Department Care Team Description 04/19/2020 Telephone [facility] Romeo Chen MD Refill Request Neurology-[address] [place] [phone] [address] [place] [address] [phone] Allergies No Known Allergiesdocumented as of this [...] this encounter Miscellaneous Notes Telephone Encounter - Romeo Chen MD - 04/22/2020 10:47 AM CDTYes can we refill that medication for the patient? elephone Encounter - Stefani Alfonso - 04/19/2020 5:16 PM CDTSummary: cloBAZam (ONFI) 10 mg Tab Brady Mejia is a 29 year old male cloBAZam (ONFI) 10 mg Tab 30 tablet 5 09/24/2019 -- Sig: Take 10 mg by mouth at bedtime. Class: Normal Route: Oral Order: [id number] Controlled? KENZIE Class Yes [1] C-IV Limited Dependence [4] Pharmacy [id number] - [place], [place] - [address] AT [employer] [facility] [employer] documented in this encounter Plan of Treatment Date Type Specialty Care Team Description 04/29/2020 Office Visit Neurology Romeo Chen MD [address] [place], [place] [address]. [place] [phone] 09/29/2020 Office Visit Neurology Romeo Chen MD [address] [place] [address]. [place], [facility] [phone] Health Maintenance Due Date Last Done [...] Effective Dates Phone Addre ss Type Group [facility] [id number] 2018-Present Medicaid COMM PLAN - PLUS MANAGED MEDICAID documented as of this encounter
[2020-06-07] MEDS ORDERED: ONDANSETRON 4 MG/2 ML VIAL ONE (12:41)
[2020-06-07] MEDS ORDERED: MORPHINE 4 MG/ML SYR ONE (12:41)
--- NOTE | 2020-06-07 12:46 | RAD REPORT ---
EXAM DESCRIPTION: CT - Head Brain Wo Cont - 06/07/2020 12:33 pm CLINICAL HISTORY: TRAUMA Headache, drowsiness, COMPARISON: HEAD BRAIN W O CONTRAST dated 04/28/2009; HEAD BRAIN W O CONTRAST dated 04/20/2008 TECHNIQUE: All CT scans are performed using dose optimization technique as appropriate and may inclu de automated exposure control or mA/KV adjustment according to patient size. FINDINGS: No intracranial hemorrhage, hydrocephalus or extra-axial fluid collection.Small calcificat ions are present, unchanged.No areas of brain edema or evidence of midline shift. Moderate mucosal thickening of the left maxillary antrum, ethmoid air cell and frontal sinus noted. T he paranasal sinuses and mastoids otherwise clear. The calvarium is intact. IMPRESSION: No acute intracranial abnormality.
--- NOTE | 2020-06-07 12:51 | RAD REPORT ---
EXAM DESCRIPTION: CT - CTFB CLINICAL HISTORY: FACIAL PAIN Jaw pain COMPARISON: No comparisons TECHNIQUE: Axial 2 mm thick images of the face were obtained with sagittal and coronal reconstructio n images. All CT scans are performed using dose optimization technique as appropriate and may include automated exposure control or mA/KV adjustment according to patient size. FINDINGS: No acute facial bone fracture is seen.The mandible is intact. The globes and orbital contents are grossly unremarkable.Moderate polypoid mucosal thickening of the left maxillary antrum, ethmoid air cells and left frontal sinus. IMPRESSION: Negative for facial bone fracture. Moderate left-sided sinus disease.
--- NOTE | 2020-06-07 12:55 | ER ---
Nurse's Notes [facility] Name: Brady Mejia Age: 30 yrs Sex: Male : 1990 Arrival Date: 06/07/2020 Time: 11:26 Bed 14 Private MD: Raj Walton Diagnosis: Facial contusion;Epilepsy and recurrent seizures Presentation: 06/07 11:43 Chief complaint: Patient states: Had a seizure this morning falling out of bed onto ss face. Pt c/o jaw pain and unable to open mouth. Coronavirus screen: Client denies travel out of the [place] in the last 14 days. Ebola Screen: Patient denies exposure to infectious person. Patient denies travel to an Ebola-affected area in the 21 days before illness onset. Initial Sepsis Screen: Does the patient meet any 2 criteria? No. Patient's initial sepsis screen is negative. Does the patient have a suspected source of infection? No. Patient's initial sepsis screen is negative. Risk Assessment: Do you want to hurt yourself or someone else? Patient reports no desire to harm self or others. Onset of symptoms was June 07, 2020. 11:43 Method Of Arrival: Ambulatory ss 11:43 Acuity: NARA 3 ss Historical: - Allergies: 11:41 No Known Allergies; ss - PMHx: 11:41 Hypertension; Seizures; Tuberous Sclerosis; Hypothyroidism; High Cholesterol; ss - PSHx: 11:41 kidney tumor removal; ss - Immunization history:: Adult Immunizations up to date. - Social history:: Smoking status: Patient denies any tobacco usage or history of. - Family history:: not pertinent. - Hospitalizations: : No recent hospitalization is reported. Screenin:56 Abuse screen: Denies threats or abuse. Nutritional screening: No deficits noted. ll1 Tuberculosis screening: No symptoms or risk factors identified. Fall Risk Fall in past 12 months (25 points). Secondary diagnosis (15 points) seizures, Total Aquino Fall Scale indicates Low Risk Score (25-44 pts). Fall prevention measures have been instituted. Side Rails Up X 2 Placed close to Nursing Station Frequent Obs/Assesments occuring Family Present and informed to notify staff if they need to leave bedside As available Patient and Family Educated on Fall Prevention Program and strategies. Assessment: 12:08 General: Appears uncomfortable, Behavior is calm, cooperative. Pain: Complains of pain ll1 in l jaw Quality of pain is described as aching, Pain began 1 day ago. Is continuous. Neuro: Level of Consciousness is awake, alert, obeys commands, Oriented to person, place, time, situation, Appropriate for age Forestry Workers are equal bilaterally Moves all extremities. Full function Gait is steady, Speech is normal, Facial symmetry appears normal, Pupils are PERRLA, Reports seizure last night.. Cardiovascular: No deficits noted. Respiratory: No deficits noted. GI: No deficits noted. Musculoskeletal: Capillary refill < 3 seconds, Range of motion: limited in jaw area Swelling present in R jaw Tenderness present in both sides of jaw Reports pain in L jaw. Injury Description: Head injury Bruise. 13:05 Reassessment: Patient and/or family updated on plan of care and expected duration. Pain ll1 level reassessed. Patient is alert, oriented x 3, equal unlabored respirations, skin warm/dry/pink. Vital Signs: 11:41 BP 150 / 103; Pulse 75; Resp 16; Temp 97.2; Pulse Ox 100% on R/A; Weight 87.09 kg; ss Height 5 ft. 11 in. (180.34 cm); Pain 9/10; 13:14 BP 138 / 93; Pulse 63; Resp 16; Pulse Ox 96% ; ll1 11:41 Body Mass Index 26.78 (87.09 kg, 180.34 cm) ED Course: 11:26 Patient arrived in ED. mr 11:26 Raj Walton MD is Private Physician. mr 11:41 Arm band placed on right wrist. ss 11:44 Triage completed. ss 11:53 America Carl, SANCHO is Primary Nurse. ll1 11:56 Patient has correct armband on for positive identification. Bed in low position. Call ll1 light in reach. Side rails up X2. Pulse ox on. NIBP on. 11:58 Fredy Carvajal MD is Attending Physician. rn 12:33 CT Facial Bones W/O Con In Process Unspecified. EDMS 12:33 CT Head Brain wo Cont In Process Unspecified. EDMS 12:45 Inserted saline lock: 20 gauge in right antecubital area, using aseptic technique. dh3 14:46 No provider procedures requiring assistance completed. IV discontinued, intact, ll1 bleeding controlled, No redness/swelling at site. Pressure dressing applied. Administered Medications: 12:53 Drug: morphine 4 mg Route: IVP; Site: right antecubital; ll1 13:14 Follow up: Response: No adverse reaction; Pain is decreased; RASS: Alert and Calm (0) ll1 12:53 Drug: Zofran (Ondansetron) 4 mg Route: IVP; Site: right antecubital; ll1 13:14 Follow up: Response: No adverse reaction; RASS: Alert and Calm (0) 1 Outcome: 12:54 Discharge ordered by . rn 13:27 Patient left the ED. ll1 13:27 Discharged to home via wheelchair. 1 13:27 Condition: stable 13:27 Discharge instructions given to patient, family, Instructed on discharge instructions, follow up and referral plans. medication usage, Demonstrated understanding of instructions, follow-up care, medications, Prescriptions given X 1. Signatures: Dispatcher [employer] [facility] Zenobia Mtz Roman, MD MD rn Smirch, Shelby, RN RN Lauren Flower [facility] America Carl RN RN 1
--- NOTE | 2020-06-07 12:55 | EDPHYS ---
Physician Documentation [facility] Name: Brady Mejia Age: 30 yrs Sex: Male : 1990 Arrival Date: 06/07/2020 Time: 11:26 Bed 14 Private MD: Raj Walton ED Physician Fredy Carvajal HPI: 06/07 12:22 This 30 yrs old Male presents to ER via Ambulatory with complaints of Fall rn Injury, Facial Swelling. 12:22 Details of fall: The patient fell from a supine position, out of bed. Onset: The rn symptoms/episode began/occurred this morning. Associated injuries: The patient sustained face/left jaw. Severity of symptoms: At their worst the symptoms were moderate, in the emergency department the symptoms are unchanged. The patient has not experienced similar symptoms in the past. Reports had a seizure early this morning, has hx of seizures and not atypical for him, fell out of bed and landed on face, reports pain to left jaw, and mild pain to right cheek. Denies pain to extremities/chest/abdomen. . Historical: - Allergies: 11:41 No Known Allergies; ss - PMHx: 11:41 Hypertension; Seizures; Tuberous Sclerosis; Hypothyroidism; High Cholesterol; ss - PSHx: 11:41 kidney tumor removal; ss - Immunization history:: Adult Immunizations up to date. - Social history:: Smoking status: Patient denies any tobacco usage or history of. - Family history:: not pertinent. - Hospitalizations: : No recent hospitalization is reported. ROS: 12:22 Constitutional: Negative for fever, chills, and weight loss, Eyes: Negative for injury, rn pain, redness, and discharge, ENT: + left jaw pain and injury Neck: Negative for injury, pain, and swelling, Cardiovascular: Negative for chest pain, palpitations, and edema, Respiratory: Negative for shortness of breath, cough, wheezing, and pleuritic chest pain, Abdomen/GI: Negative for abdominal pain, nausea, vomiting, diarrhea, and constipation, Back: Negative for injury and pain, MS/Extremity: Negative for injury and deformity, Skin: Negative for injury, rash, and discoloration, Neuro: + mild headache Exam: 12:24 Constitutional: This is a well developed, well nourished patient who is awake, alert, rn appears uncomfortable Head/Face: Normocephalic, + left jaw tenderness along angle of mandible, + mild-moderate trismus. Eyes: Pupils equal round and reactive to light, extra-ocular motions intact. Periorbital areas with no swelling, redness, or edema. ENT: No oral injury, no gingival laceration or evidence of alveolar ridge fracture. Cardiovascular: Regular rate and rhythm. No pulse deficits. Respiratory: No increased work of breathing, no retractions or nasal flaring. Abdomen/GI: soft, non-tender MS/ Extremity: Pulses equal, no cyanosis. Neurovascular intact. Full, normal range of motion. Equal circumference. Neuro: Awake and alert, GCS 15 Vital Signs: 11:41 BP 150 / 103; Pulse 75; Resp 16; Temp 97.2; Pulse Ox 100% on R/A; Weight 87.09 kg; ss Height 5 ft. 11 in. (180.34 cm); Pain 9/10; 13:14 BP 138 / 93; Pulse 63; Resp 16; Pulse Ox 96% ; ll1 11:41 Body Mass Index 26.78 (87.09 kg, 180.34 cm) ss MDM: 11:58 Patient medically screened. rn 12:53 Differential diagnosis: closed head injury, contusion, fracture. Data reviewed: vital rn signs, nurses notes, radiologic studies, CT scan, and as a result, I will discharge patient. Counseling: I had a detailed discussion with the patient and/or guardian regarding: the historical points, exam findings, and any diagnostic results supporting the discharge/admit diagnosis, radiology results, the need for outpatient follow up, to return to the emergency department if symptoms worsen or persist or if there are any questions or concerns that arise at home. Medical screen evaluation completed. [facility] emergency medical condition absent. Special discussion: Based on the patient's history, exam and DX evaluation, there is no indication for emergent intervention or inpatient TX. It is understood by the patient/guardian that if the SXs persist or worsen they need to return immediately for re-evaluation. I discussed with the patient/guardian in detail that at this point there is no indication for admission to the hospital. It is understood, however, that if the symptoms persist or worsen the patient needs to return immediately for re-evaluation. 06/07 11:47 Order name: CT Facial Bones W/O Con; Complete Time: 12:53 snw 10/24 12:05 Order name: CT Head Brain wo Cont; Complete Time: 12:53 rn 06/07 12:24 Order name: IV Start; Complete Time: 12:47 rn Administered Medications: 12:53 Drug: morphine 4 mg Route: IVP; Site: right antecubital; ll1 13:14 Follow up: Response: No adverse reaction; Pain is decreased; RASS: Alert and Calm (0) ll1 12:53 Drug: Zofran (Ondansetron) 4 mg Route: IVP; Site: right antecubital; ll1 13:14 Follow up: Response: No adverse reaction; RASS: Alert and Calm (0) ll1 Disposition: 06/07/20 12:54 Discharged to Home. Impression: Facial contusion, Epilepsy and recurrent seizures. - Condition is Stable. - Discharge Instructions: Facial or Scalp Contusion, Seizure, Adult. - Prescriptions for Tylenol- Codeine #3 300-30 mg Oral Tablet - take 1 tablet by ORAL route every 6 hours As needed; 15 tablet. - Medication Reconciliation Form, Thank You Letter, Antibiotic Education, Prescription Opioid Use form. - Follow up: Private Physician; When: As needed; Reason: Recheck today's complaints, Re-evaluation by your physician. - Problem is new. - Symptoms have improved. Signatures: Dispatcher [employer] EDFredy Yap MD MD rn Smirch, Shelby, RN RN ss Lewis, Lynsay, RN RN ll1 Corrections: (The following items were deleted from the chart) 13:27 12:54 06/07/2020 12:54 Discharged to Home. Impression: Facial contusion; Epilepsy and ll1 recurrent seizures. Condition is Stable. Forms are Medication Reconciliation Form, Thank You Letter, Antibiotic Education, Prescription Opioid Use. Follow up: Private Physician; When: As needed; Reason: Recheck today's complaints, Re-evaluation by your physician. Problem is new. Symptoms have improved. rn
[2020-06-07 13:55] VITALS: TEMP 97.2
[2020-06-07 13:56] VITALS: BP 138/93; O2SAT 96
== END 2020-06-07 13:27 | disposition home or self-care (01) ==
LOC: ER 11:23
DX: S00.83XA Contusion of other part of head, initial encounter (principal); G40.802 Other epilepsy, not intractable, without status epilepticus; W06.XXXA Fall from bed, initial encounter; Y93.89 Activity, other specified; Y92.9 Unspecified place or not applicable; I10 Essential (primary) hypertension
CPT/HCPCS: 70450; 70486; 76377; 96375; 96374; 99284; J2405

== ENCOUNTER 2021-04-22 08:00 | Emergency (ER) | payer OTHER ==
--- OUTSIDE RECORDS SUMMARY | 2021-04-22 08:03 | XMS REPORT | Continuity of Care Document ---
:1990 Author Organization [facility] t Address [address] [place] [address] Care Team Providers Name Role Phone Jagdish [...] 2020-04-22 2020-04-22 Telephone DARYA Chen [id number] 00:00:00 00:00:00 Romeo Vick [id number] [place] [id number] Profcarolyn [phone] [address] 2020-04-22 2020-04-22 Refill April MAHERIBERTO [id number] 00:00:00 00:00:00 Romeo Vick [id number] [place] [id number] Profcarolyn [phone] [address] 2020-04-21 2020-04-21 Telephone CATINA Mistry [id number] 00:00:00 00:00:00 Sandra COPELAND [id number] [facility] [phone] [phone] 2020-04-19 Nurse Nisha Vasquez [id number] 00:00:00 00:00:00 Triage MIN [id number] [facility] [id number] [id number] 2020-04-19 2020-04-19 Telephone April [facility] [id number] 00:00:00 00:00:00 Romeo Vick [id number] [place] [id number] Professio [phone] [address] 2019-09-24 2019-09-24 Office [facility] [id number] 10:52:50 11:19:51 Visit Nicanor medina [id number] Jessica Cormier [id number] [place] [phone] [address] 2019-09-24 2019-09-24 Orders Doctor CATINA [id number] 00:00:00 00:00:00 Only Unassigned, MIN [id number] [place] [id number] [phone] [id number] Results This patient has no known results.
[2021-04-22 08:42] LABS: Basophils % 0.6 % (0-1.3); Hematocrit 40.1 % (39.6-49.0); MPV 7.4 fL (7.6-11.3); RBC Red Blood Cell Count 4.39 M/uL (4.33-5.43)
[2021-04-22] MEDS ORDERED: ONDANSETRON 4 MG/2 ML VIAL ONE (08:57)
[2021-04-22] MEDS ORDERED: MORPHINE 4 MG/ML SYR ONE (08:57)
[2021-04-22 09:00] LABS: ALT/SGPT 13 U/L (12-78); AST/SGOT 20 U/L (15-37); Albumin 3.5 g/dL (3.4-5.0); Alkaline Phosphatase 53 U/L (45-117); BUN Blood Urea Nitrogen 20 mg/dL (7-18); Bicarbonate 29 mmol/L (21-32); Bilirubin Direct < 0.1 mg/dL (0-0.2); Bilirubin Total 0.2 mg/dL (0.2-1.0); Glucose Level 134 mg/dL (74-106); Lipase 56 U/L (73-393); Potassium 3.9 mmol/L (3.5-5.1); Protein, Total 7.1 g/dL (6.4-8.2); Sodium Level 140 mmol/L (136-145); Valproic Acid (Depakene) Level 105.9 ug/mL (50-100)
[2021-04-22] MEDS ORDERED: HYDROMORPHONE HCL 1 MG/ML INJ ONE (09:37)
[2021-04-22] MEDS ORDERED: PROMETHAZINE INJ 25 MG/ML AMP ONE (09:39)
--- NOTE | 2021-04-22 09:56 | RAD REPORT ---
EXAM DESCRIPTION: CT - Abdomen Pelvis W Contrast - 04/22/2021 9:45 am CLINICAL HISTORY: Abdominal pain/right flank pain COMPARISON: 2018 TECHNIQUE: Computed axial tomography of the abdomen pelvis was obtained. 100 cc Isovue-300 was admin istered intravenously. Oral contrast was not requested which limits evaluation of bowel. All CT scans are performed using dose optimization technique as appropriate and may include automated exposure control or mA/KV adjustment according to patient size. FINDINGS: Bilateral renal angiomyelolipomas. 15 centimeter intraparenchymal/subcapsular/perirenal bl eed right kidney. Extravasation of contrast is present. Hematoma measures 15 centimeters. Liver, spleen, pancreas and adrenals unremarkable. No evidence of diverticulitis IMPRESSION: Bilateral renal angiomyelolipomas. Acute bleeding from 1 of the right renal angiomyelolipomas. 15 centimeter intraparenchymal/subcapsula r/perirenal renal hematoma Dr Galaviz of the emergency room notified at approximately 9:45 a.m. April 22, 2021
[2021-04-22] MEDS ORDERED: NA CHLORIDE 0.9% 1,000 ML ONE ×2 (10:21→12:40)
[2021-04-22 11:00] LABS: Protime INR 1.21
--- NOTE | 2021-04-22 12:37 | ER ---
Nurse's Notes [facility] Name: Brady Mejia Age: 30 yrs Sex: Male : 1990 Arrival Date: 04/22/2021 Time: 08:12 Bed 14 Private MD: Diagnosis: Unspecified injury of right kidney, initial encounter Presentation: 04/22 08:48 Chief complaint: Patient states: to er c/o right flank times this am. 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 states one tumor burst last year. had to have emergency surgery. Coronavirus screen: Vaccine status: Patient reports receiving the 2nd dose of the covid vaccine. Ebola Screen: No symptoms or risks identified at this time. Initial Sepsis Screen: Does the patient meet any 2 criteria? No. Patient's initial sepsis screen is negative. Does the patient have a suspected source of infection?. Risk Assessment: Do you want to hurt yourself or someone else? Patient reports no desire to harm self or others. Onset of symptoms was April 22, 2021. 08:48 Method Of Arrival: EMS: [facility] 08:48 Acuity: [facility] Triage Assessment: 08:51 General: Appears uncomfortable, Behavior is calm, cooperative, restless. Pain: critical access hospital Complains of pain in abdomen right flank pain Pain does not radiate. Pain currently is 10 out of 10 on a pain scale. Quality of pain is described as sharp. Historical: - Allergies: 08:55 NKDA; aa5 - PMHx: 08:55 Hypertensive disorder; Seizure; Hypothyroidism; High Cholesterol; Tuberus sclerosis; aa5 Learning Disability; - PSHx: 08:55 L Kidney Tumor Removed.; aa5 - Immunization history:: Adult Immunizations up to date, . - Social history:: Patient/guardian denies using alcohol, street drugs, IV drugs, Patient/guardian denies using alcohol, street drugs, but used to use street drugs, Smoking status: Patient/guardian denies using alcohol, tobacco products. Screenin:21 Abuse screen: Denies threats or abuse. Nutritional screening: No deficits noted. critical access hospital Tuberculosis screening: No symptoms or risk factors identified. Fall Risk Assessment: 09:21 Reassessment: Patient appears in no apparent distress at this time. No changes from kh1 previously documented assessment. Patient and/or family updated on plan of care and expected duration. Pain level reassessed. 11:11 Reassessment: Patient appears in no apparent distress at this time. No changes from kh1 previously documented assessment. Patient and/or family updated on plan of care and expected duration. Pain level reassessed. 12:40 Reassessment: RBC consent obtained and signed by pt's mother (Pt has learning aa5 disability and is unable to sign at this time). . 13:49 Reassessment: Patient appears in no apparent distress at this time. No changes from kh1 previously documented assessment. Patient and/or family updated on plan of care and expected duration. Pain level reassessed. Patient states symptoms have not improved. 14:35 Reassessment: PT TRANSFERRED TO [facility]. REPORT GIVEN TO SHANE moreno RN. TRANSFERRED VIA HELICOPTER. SLEEPY BUT RESPONDS WHEN ASKED. NO ACUTE DISTRESS. Vital Signs: 08:48 BP 121 / 101; Pulse 68; Resp 18; Temp 98.8; Pulse Ox 96% on R/A; kh1 08:52 BP 121 / 101; Pulse 68; Resp 18; Temp 98.8(O); Pulse Ox 96% on R/A; kh1 10:00 BP 129 / 83; Pulse 65; Resp 24; Pulse Ox 96% on R/A; kh1 11:10 BP 113 / 76; Pulse 88; Resp 16; Pulse Ox 96% on R/A; kh1 12:43 BP 100 / 63; Pulse 112; Resp 20; Temp 97.4(TE); Pulse Ox 96% on R/A; kh1 13:40 BP 123 / 72; Pulse 114; Resp 22; Pulse Ox 98% on R/A; kh1 14:30 BP 118 / 74; Pulse 108; Resp 20; Pulse Ox 98% ; kh1 ED Course: 08:12 Patient arrived in ED. aa5 08:14 Arthur Galaviz MD is Attending Physician. sp3 08:26 Any Middleton is Primary Nurse. kh1 08:47 Valproic Acid (depakote) Sent. kh1 08:47 Basic Metabolic Panel Sent. kh1 08:48 Hepatic Function Sent. kh1 08:48 Lipase Sent. kh1 08:50 Triage completed. kh1 08:51 Arm band placed on right wrist. kh1 09:21 No provider procedures requiring assistance completed. Inserted saline lock: 20 gauge kh1 in left antecubital area, using aseptic technique. Blood collected. 09:21 Patient has correct armband on for positive identification. Bed in low position. Call kh1 light in reach. Side rails up X2. 09:45 CT Abd/Pelvis - IV Contrast Only In Process Unspecified. EDMS 10:44 initiated transfer to [facility], pt declined due to no surgical icu beds, and bd pt cant be sent to the er.per RENETTA Beaver. 10:51 PT-INR Sent. kh1 10:51 Type And Screen Sent. kh1 11:08 initiated transfer to [place], pt denied at all [facility] due to no beds and bd pts waiting in er. per Leroy. 11:13 initiated transfer to [facility]. bd 11:15 pt denied at all [facility] due to being at capacity and holding pt in er. per Cailin. bd 11:18 initiated transfer to [facility]. bd 11:25 pt denied at [facility] due to only 1 covid be avaliable. per Chetna. bd 12:40 Inserted saline lock: 20 gauge in right antecubital area, using aseptic technique. aa5 14:35 Packed RBC Leukored Sent. kh1 Administered Medications: 08:40 Drug: morphine 4 mg Route: IVP; Site: left antecubital; kh1 08:47 Drug: Zofran (Ondansetron) 4 mg Route: IVP; Site: left antecubital; kh1 09:20 Drug: Phenergan (promethazine) 12.5 mg Route: IVP; Site: left antecubital; kh1 09:20 Drug: Dilaudid (HYDROmorphone) 1 mg Route: IVP; Site: left antecubital; kh1 10:00 Drug: NS 0.9% 1000 ml Route: IV; Rate: 1 bolus; Site: left antecubital; kh1 12:00 Drug: NS 0.9% 1000 ml Route: IV; Rate: 1000 ml; Site: left antecubital; kh1 Outcome: 12:36 ER care complete, transfer ordered by . sp3 14:33 Transferred by helicopter to other acute care facility: [facility]. 1 X-rays sent w/ patient. 14:33 Condition: unchanged 14:33 Instructed on the need for transfer. 14:57 Patient left the ED. Signatures: Dispatcher [employer] EDFarnaz Blakely Audri, RN RN aa5 Arthur Galaviz MD MD sp3 [facility] Corrections: (The following items were deleted from the chart) 08:51 08:51 PMHx: Seizures; [facility] 08:51 08:51 PMHx: Tuberous Sclerosis; critical [facility] hospital 08:51 08:51 PMHx: Hypertension; [facility] 08:51 08:51 PMHx: Hypothyroidism; [facility] hospital 08:51 08:51 PMHx: High Cholesterol; [place] [id number] 14:44 14:42 BP 123 / 72; Pulse 114bpm; Resp 22bpm; Pulse Ox 98% RA; [place] [id number]
--- NOTE | 2021-04-22 12:37 | EDPHYS ---
Physician Documentation [facility] Name: Brady Mejia Age: 30 yrs Sex: Male : 1990 Arrival Date: 04/22/2021 Time: 08:12 Bed 14 Private MD: JONATHAN Physician Arthur Galaviz HPI: 04/22 08:18 This 30 yrs old Male presents to ER via Unassigned with complaints of right sp3 flank pain. 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 Patient arrives via EMS. Patient states that he was asleep and the pain started on the right side extending around to his right lower quadrant which awoke him from sleep. He denies any other symptoms including chest pain, shortness of breath, fever, dysuria, urinary frequency, hematuria, left-sided abdominal pain, nausea, vomiting, diarrhea, known sick contacts, travel history, trauma, any other ROS at this time. Pain is described as constant and sharp as well as waxing and waning in intensity. He states that he has felt like this before when prior time when "one of his cysts burst".. Historical: - Allergies: 08:55 NKDA; aa5 - PMHx: 08:55 Hypertensive disorder; Seizure; Hypothyroidism; High Cholesterol; Tuberus sclerosis; aa5 Learning Disability; - PSHx: 08:55 L Kidney Tumor Removed.; aa5 - Immunization history:: Adult Immunizations up to date, . - Social history:: Patient/guardian denies using alcohol, street drugs, IV drugs, Patient/guardian denies using alcohol, street drugs, but used to use street drugs, Smoking status: Patient/guardian denies using alcohol, tobacco products. ROS: 08:20 Constitutional: Negative for fever, chills, and weight loss, Eyes: Negative for injury, sp3 pain, redness, and discharge, ENT: Negative for injury, pain, and discharge, Neck: Negative for injury, pain, and swelling, Cardiovascular: Negative for chest pain, palpitations, and edema, Respiratory: Negative for shortness of breath, cough, wheezing, and pleuritic chest pain, Back: Negative for injury and pain, MS/Extremity: Negative for injury and deformity, Skin: Negative for injury, rash, and discoloration, Neuro: Negative for headache, weakness, numbness, tingling, and seizure, Psych: Negative for depression, anxiety, suicide ideation, homicidal ideation, and hallucinations, Allergy/Immunology: Negative for hives, rash, and allergies, Endocrine: Negative for neck swelling, polydipsia, polyuria, polyphagia, and marked weight changes, Hematologic/Lymphatic: Negative for swollen nodes, abnormal bleeding, and unusual bruising. 08:20 Abdomen/GI: Positive for abdominal pain, abdominal cramps, Right-sided flank pain. 08:20 Abdomen/GI: Negative for nausea and vomiting, nausea, vomiting, and diarrhea, nausea, vomiting, diarrhea, constipation, hematemesis, black/tarry stool, rectal pain, rectal bleeding. 08:20 : Positive for Negative for injury or acute deformity, hematuria, pelvic pain, burning with urination, difficulty urinating, bladder incontinence, foul smelling urine, penile discharge, penile pain, testicular pain 08:22 All other systems are negative. sp3 Exam: 08:21 Constitutional: This is a well developed, well nourished patient who is awake, alert, sp3 and in no acute distress. Head/Face: Normocephalic, atraumatic. Eyes: Pupils equal round and reactive to light, extra-ocular motions intact. Lids and lashes normal. Conjunctiva and sclera are non-icteric and not injected. Cornea within normal limits. Periorbital areas with no swelling, redness, or edema. ENT: Nares patent. No nasal discharge, no septal abnormalities noted. External auditory canals are clear. Oropharynx with no redness, swelling, or masses, exudates, or evidence of obstruction, uvula midline. Mucous membranes moist. Neck: Trachea midline, no thyromegaly or masses palpated, and no cervical lymphadenopathy. Supple, full range of motion without nuchal rigidity, or vertebral point tenderness. No Meningismus. Chest/axilla: Normal chest wall appearance and motion. Nontender with no deformity. No lesions are appreciated. Cardiovascular: Regular rate and rhythm with a normal S1 and S2. No gallops, murmurs, or rubs. Normal PMI, no JVD. No pulse deficits. Respiratory: Lungs have equal breath sounds bilaterally, clear to auscultation and percussion. No rales, rhonchi or wheezes noted. No increased work of breathing, no retractions or nasal flaring. Back: No spinal tenderness. No costovertebral tenderness. Full range of motion. Skin: Warm, dry with normal turgor. Normal color with no rashes, no lesions, and no evidence of cellulitis. 08:21 Abdomen/GI: Exam negative for bruising, distension, guarding, pulsatile mass, rebound tenderness, Bowel sounds: Palpation: soft, moderate abdominal tenderness, Right lower quadrant and right upper quadrant. 08:21 Back: CVA tenderness, that is moderate, is noted on the right. Vital Signs: 08:48 BP 121 / 101; Pulse 68; Resp 18; Temp 98.8; Pulse Ox 96% on R/A; kh1 08:52 BP 121 / 101; Pulse 68; Resp 18; Temp 98.8(O); Pulse Ox 96% on R/A; kh1 10:00 BP 129 / 83; Pulse 65; Resp 24; Pulse Ox 96% on R/A; kh1 11:10 BP 113 / 76; Pulse 88; Resp 16; Pulse Ox 96% on R/A; kh1 12:43 BP 100 / 63; Pulse 112; Resp 20; Temp 97.4(TE); Pulse Ox 96% on R/A; kh1 13:40 BP 123 / 72; Pulse 114; Resp 22; Pulse Ox 98% on R/A; kh1 14:30 BP 118 / 74; Pulse 108; Resp 20; Pulse Ox 98% ; kh1 MDM: 08:15 Patient medically screened. sp3 08:22 Data reviewed: vital signs, nurses notes, EMS record. sp3 08:23 ED course: 30-year-old male with tuberous sclerosis and prior renal cysts now presents sp3 with right-sided flank pain. Broad differential exists including UTI, kidney stone, renal cyst, hepatobiliary pathology, bowel pathology, sepsis/infection, and functional pain. At this time I am not highly suspicious for vascular compromise or septic shock. Will obtain laboratory values, CT scan of the abdomen/pelvis, and administer IV morphine and Zofran for pain and nausea control. Disposition based on work-up and patient course.. 09:55 ED course: Discussed with radiologist as well as looking at the images myself. Right 3 kidney demonstrates active bleeding dilatation and rupture. Right kidney at maximal diameter is 10 cm. Blood pressure is 93/80 which is lower than his initial arrival blood pressure. Patient did get narcotic pain medications. Will bolus 1 L normal saline and continue monitoring as well as type and screen and PT/INR. Stat transfer is being arranged to [facility] for urological services. Patient is to be kept n.p.o.. 12:06 ED course: We have tried transferring this patient to [address] to no avail. Will reconnect with [facility] to urged him to accept patient in the emergency department for stat urology consult. Vital signs now at blood pressure 92/61 and heart rate of 111.. 12:23 ED course: Patient now with heart rate of 112 and blood pressure of 88/60. Will order 2 sp3 units of PRBCs stat and continue normal saline. We have escalated [facility] process [facility] and are attempting with every resource possible to get this patient transferred to [facility] for urgent stat urological consultation and intervention. Mom is at the bedside and I have spoken to both patient and her on our status.. 12:33 ED course: Just informed by administration that [facility]. We are waiting on Covid testing but will go ahead and activate rotor wing air transfer. I do not believe patient will be Covid positive. Regardless he needs embolization and/or intervention for his continued bleeding. Packed red cells will be hung momentarily soon as they are received.. 04/22 08:18 Order name: Basic Metabolic Panel; Complete [facility]: [facility] 04/22 08:18 Order name: CBC with Diff; [facility] 04/[facility] 08:18 Order name: Hepatic Function; [facility] 04/22 08:18 Order name: Lipase; Complete [facility] 04/22 08:18 Order name: Valproic Acid (depakote); Complete [facility]: [facility] 04/22 09:54 Order name: Type And Screen [facility] 04/22 09:54 Order name: PT-INR; Complete Time: 12:15 [facility] 04/22 10:53 Order name: COVID-19 : Document "Date of Symptom Onset" if Symptomatic. bp 04/22 12:31 Order name: Packed RBC Leukored EDMS 04/22 08:18 Order name: IV Saline Lock; Complete Time: 08:47 sp3 04/22 08:18 Order name: Labs collected and sent; Complete Time: 08:47 sp3 04/22 08:18 Order name: CT Abd/Pelvis - IV Contrast Only; Complete Time: 10:25 sp3 04/22 08:18 Order name: NPO; Complete Time: 08:47 sp3 04/22 12:37 Order name: ABO/RH no charge; Complete Time: 13:50 EDMS 04/22 13:02 Order name: SARS-COV-2 RT PCR; Complete Time: 13:50 EDMS Administered Medications: 08:40 Drug: morphine 4 mg Route: IVP; Site: left antecubital; kh1 08:47 Drug: Zofran (Ondansetron) 4 mg Route: IVP; Site: left antecubital; kh1 09:20 Drug: Phenergan (promethazine) 12.5 mg Route: IVP; Site: left antecubital; kh1 09:20 Drug: Dilaudid (HYDROmorphone) 1 mg Route: IVP; Site: left antecubital; kh1 10:00 Drug: NS 0.9% 1000 ml Route: IV; Rate: 1 bolus; Site: left antecubital; kh1 12:00 Drug: NS 0.9% 1000 ml Route: IV; Rate: 1000 ml; Site: left antecubital; kh1 Disposition Summary: 04/22/21 12:36 Transfer Ordered Transfer Location: [facility] sp3 Reason: Higher level of care sp3 Condition: Critical sp3 Problem: an acute exacerbation sp3 Symptoms: have worsened sp3 Accepting Physician: Lance Sharma urology(04/22/21 14:57) kh1 Diagnosis - Unspecified injury of right kidney, initial encounter sp3 Forms: - Medication Reconciliation Form sp3 - SBAR form sp3 Critical care time excluding procedures: 12:34 Critical care time: Bedside Care: 15 minutes, Consultation: 15 minutes, Family sp3 Intervention: 15 minutes. Total time: 45 minutes Signatures: Dispatcher [employer] EDMS Aurelia Hawk RN RN aa5 Arthur Galaviz MD MD sp3 Any [place] kh1 Corrections: (The following items were deleted from the chart) 08:51 08:51 PMHx: Seizures; 1 kh 08:51 08:51 PMHx: Tuberous Sclerosis; 1 kh 08:51 08:51 PMHx: Hypertension; 1 kh 08:51 08:51 PMHx: Hypothyroidism; 1 1 08:51 08:51 PMHx: High Cholesterol; formerly [facility] 12:09 10:54 CORONAVIRUS ordered. EDMS EDMS 12:57 12:24 ABO/RH typing ordered. EDMS EDMS 12:57 12:24 Antibody Screen ordered. EDMS EDMS 12:58 12:24 PACKED RBC LEUKORED -1+BB.LAB.BRZ ordered. EDMS EDMS 14:57 12:36 Lance Sharma urology sp3 kh1
[2021-04-22] MEDS ORDERED: NA CHLORIDE 0.9% 500 ML ONE (12:59)
[2021-04-22 15:10] VITALS: TEMP 97.4
[2021-04-22 15:11] VITALS: O2SAT 98
[2021-04-22 15:13] VITALS: BP 118/74
== END 2021-04-22 14:57 | disposition short-term general hospital (02) ==
LOC: ER 08:00
PROC: 30233N1 Transfusion of Nonautologous Red Blood Cells into Peripheral Vein, Percutaneous Approach (ICD-10-PCS; principal; 2021-04-22)
DX: S37.001A Unspecified injury of right kidney, initial encounter (principal); X58.XXXA Exposure to other specified factors, initial encounter; Y93.9 Activity, unspecified; Q85.1 Tuberous sclerosis; I10 Essential (primary) hypertension; Z20.822 Contact with and (suspected) exposure to COVID-19
CPT/HCPCS: 85025; 80048; 36415; 86900; 86850; 85610; 86901; 80076; 80164; 83690; 74177; 96375; 96374; 99285; 36430; U0003; Q9967; J2550; J1170; P9016 ×2; J7050; J7030 ×2; J2405; P9021